=== PATIENT | female | born 1945 | race Caucasian/White ===

== ENCOUNTER → 2018-03-12 14:57 | Outpatient (CLI) | payer MEDICARE, OTHER, SELFPAY ==
--- NOTE | 2018-03-12 15:00 | DI.CT.S_ITS ---
PROCEDURE: CT ABDOMEN PELVIS W CON INDICATIONS: LLQ, lower abdomindal pain TECHNIQUE: After the administration of oral and intravenous contrast, 5 mm thick sections acquired from the diaphragms to the symphysis. 5 mm thick coronal and sagittal reformats were performed. For radiation dose reduction, the following was used: automated exposure control, adjustment of mA and/or kV according to patient size. COMPARISON: None. FINDINGS: Image quality: Excellent. ABDOMEN: Lung bases: There is mild atelectasis. Heart size is at the upper limits of normal. A small hilar hernia is present. Solid organs: There is mild focal fatty infiltration in the anterior left hepatic lobe. Gallbladder appears within normal limits without calcified gallstones. Biliary system is non-dilated. Pancreas enhances normally. Spleen is normal in size and enhancement. No adrenal nodules. Kidneys demonstrate no hydronephrosis. Peritoneum and bowel: Stomach and small bowel loops are normal in caliber and wall thickness. No pericecal inflammatory changes to suggest appendicitis. There is colonic diverticulosis with associated segmental wall thickening and extensive inflammatory fat stranding and pericolonic fluid in the sigmoid colon consistent with acute diverticulitis. There is an associated pericolonic loculated fluid collection containing gas consistent with a diverticular abscess. This measures approximately 3.9 x 2.5 x 2.2 cm. Inflammatory fat stranding extends to the adjacent loops of small bowel and the bladder dome without a discrete fistula identified at this time. Nodes and vessels: No retroperitoneal or mesenteric adenopathy. Aorta and inferior vena cava are normal in caliber. Miscellaneous: No ventral hernias. PELVIS: Genitourinary: Bladder wall thickness is normal. Miscellaneous: No inguinal hernias or adenopathy. Bones: No suspicious bony lesions. No vertebral body compression fractures. IMPRESSION: 1. Sigmoid diverticulitis with an associated diverticular abscess. Findings discussed with the on-call physician, Dr. York, on 03/12/18 at 5:25 PM. Dictated by: Fredy Trujillo M.D. on 03/12/2018 at 16:54 Approved by: Fredy Trujillo M.D. on 03/12/2018 at 17:26
[2018-03-12 15:14] LABS: Add Manual Diff / Slide Review NO; Basophils Percent Auto 0.5 % (0-2); Eosinophils Percent Auto 0.2 % (2-4); Hematocrit 39.7 % (36-46); Hemoglobin 13.7 g/dL (12.0-16.0); Lymphocytes Percent Auto 9.9 % (25-40); Mean Corpuscular HGB Conc 34.5 % (30-36); Mean Corpuscular Hemoglobin 30.6 PG (26-34); Mean Corpuscular Volume 88.7 fL (80-100); Monocytes Percent Auto 6.8 % (3-14); Neutrophils Absolute Auto 9800 /uL (3000-5900); Neutrophils Percent Auto 82.6 % (50-75); Platelet Count 335 X10^3/uL (150-400); Red Blood Cell Count 4.48 X10^6/uL (4.0-5.2); Red Cell Distribution Width 12.5 % (11.6-14.8); White Blood Cell Count 11.8 X10^3/uL (4.5-11.0)
[2018-03-12 15:31] LABS: Alanine Aminotransferase 30 IU/L (9-52); Albumin 4.7 g/dL (3.5-5.0); Albumin Globulin Ratio 1.4 (1.0-2.8); Alkaline Phosphatase 75 U/L (38-126); Aspartate Aminotransferase 24 IU/L (14-36); BUN Creatinine Ratio 21.3 (6-22); Bilirubin Total 1.7 mg/dL (0.2-1.3); Blood Urea Nitrogen 17 mg/dL (7-17); Calcium 9.9 mg/dL (8.4-10.2); Carbon Dioxide 31 mmol/L (22-32); Chloride 98 mmol/L (98-107); Estimated Glomerular Filt Rate > 60.0 mL/min (>60); Globulin 3.4 g/dL (1.7-4.1); Glucose 92 mg/dL (80-110); HEMOLYSIS < 15 (0-50); Sodium 143 mmol/L (137-145); Total Protein 8.1 g/dL (6.3-8.2)
== END ==
PROVIDERS: PCP Family Medicine; Visit Provider Registered Nurse
DX: K57.20 Diverticulitis of large intestine with perforation and abscess without bleeding (principal); R10.32 Left lower quadrant pain
CPT/HCPCS: 36415; 74177; 80053; 85025; Q9967

== ENCOUNTER 2018-03-12 18:41 | Inpatient (IN) | payer MEDICARE, OTHER, SELFPAY ==
[2018-03-12 18:58] VITALS: BP 146/79; PULSE 80; RESP 15; TEMP 38.1; O2SAT 97; BMI 26.4
--- NOTE | 2018-03-12 19:16 | ED.ABDPAIN ---
HPI - Abdominal Pain General Chief Complaint: Abdominal Pain Stated Complaint: STATES ABDOMINAL ABSCESS Time Seen by Provider: 03/12/18 18:55 Related Data Home Medications Medication Instructions Recorded Confirmed calcium carbonate-vitamin D3 500 mg PO 0800 #0 03/13/12 03/12/18 [Oyster Shell Calcium-Vit D3] aspirin 81 mg PO QDAY #0 04/09/17 03/12/18 coQ10 (ubiquinol) 100 mg PO #0 04/09/17 03/12/18 metoprolol tartrate 50 1 tab PO DAILY 03/06/18 03/12/18 mg-hydrochlorothiazide 25 mg tablet Previous Rx's Medication Instructions Recorded rosuvastatin [Crestor] 20 mg PO QDAY #90 tab 04/27/17 ciprofloxacin 500 mg tablet 500 mg PO Q12H 7 Days #14 tab 03/12/18 metronidazole 500 mg tablet 500 mg PO Q8H 7 Days #21 tab 03/12/18 Allergies Allergy/AdvReac Type Severity Reaction Status Date / Time morphine [MORPHINE] AdvReac Mild MADE ME Verified 03/12/18 18:58 SILVIANO [facility] Medical History Hyperlipidemia (Chronic) Hypertension (Chronic 2005) Retinal vascular abnormality (Chronic) Cataract (Resolved 2006) Chicken pox (Resolved 1949) Mumps (Resolved 1949) Ovarian cyst (Resolved 1997) Rubella (Resolved 1949) Surgical History Anesthesia (Resolved) History of cataract removal with insertion of prosthetic lens (Resolved) History of tonsillectomy (Resolved) History of total abdominal hysterectomy (Resolved 05/1998) S/P total abdominal hysterectomy and bilateral salpingo-oophorectomy (Resolved 05/1998) Status post appendectomy (Resolved) Status post arthroscopy (Resolved 2005) Status post arthroscopy (Resolved 2006) Status post unilateral salpingo-oophorectomy (Resolved 03/1977) Status post unilateral salpingo-oophorectomy (Resolved 05/1998) Family History Brother Age: 65 Osteoarthritis Arrhythmia Heart disease Secondary hypertension, unspecified IBS (irritable bowel syndrome) Arthritis Grandfather TB (tuberculosis) Grandmother Heart disease Mother Colon cancer Hyperlipidemia Hypertension CAD (coronary artery disease) Heart valve replaced Grandfather Stroke Grandmother Heart disease Sister Age: 71 IBS (irritable bowel syndrome) Father Rheumatoid arthritis Sister No problems noted. Sister No problems noted. Sister No problems noted. Social History Smoking Status: Never smoker Exam Initial Vital Signs Initial Vital Signs: Vital Signs Temperature 100.5 F H 03/12/18 18:58 Pulse Rate 80 03/12/18 18:58 Respiratory Rate 15 03/12/18 18:58 Blood Pressure 146/79 H 03/12/18 18:58 Pulse Oximetry 97 03/12/18 18:58 Course Orders Ordered: Piperacillin/Tazobactam/Dextrose (Zosyn) 3.375 gm in 50 mls @ 100 mls/hr IV NOW ONE Stop: 03/12/18 20:05 Metronidazole (Flagyl) 500 mg in 100 mls @ 100 mls/hr IV NOW ONE Stop: 03/12/18 20:35 Sodium Chloride (Normal Saline 0.9%) 1,000 mls @ 1,000 mls/hr IV BOLUS ONE Stop: 03/12/18 20:35 Consultations Consultation #1: Dr. Santillan consulted and reviewed images. She states this is not surgical, admit to medicine and will likely need a drain by radiology Time: 19:40 Consultation #2: call to Dr. Velarde Time: 19:40 Vital Signs - 8 hr 03/12/18 18:58 Temperature 100.5 F H Pulse Rate 80 Respiratory Rate 15 Blood Pressure 146/79 H Pulse Oximetry 97 MDM - Abdominal Pain Imaging Data CT scan - abdomen: Radiologist's impression: [place] [address] CT Scan Report Signed Patient: Corie Mills EMR#: [id number] : 4Acct:[id number] Age/Sex: 72 / FDate of Service: 03/12/18 Loc: CT Accession Number: [id number] Procedure: CT abdomen pelvis w con Ordering Provider: Kimberly Sullivan PROCEDURE: CT ABDOMEN PELVIS W CON INDICATIONS: LLQ, lower abdomindal pain TECHNIQUE: After the administration of oral and intravenous contrast, 5 mm thick sections acquired from the diaphragms to the symphysis. 5 mm thick coronal and sagittal reformats were performed. For radiation dose reduction, the following was used: automated exposure control, adjustment of mA and/or kV according to patient size. COMPARISON: None. FINDINGS: Image quality: Excellent. ABDOMEN: Lung bases: There is mild atelectasis. Heart size is at the upper limits of normal. A small hilar hernia is present. Solid organs: There is mild focal fatty infiltration in the anterior left hepatic lobe. Gallbladder appears within normal limits without calcified gallstones. Biliary system is non-dilated. Pancreas enhances normally. Spleen is normal in size and enhancement. No adrenal nodules. Kidneys demonstrate no hydronephrosis. Peritoneum and bowel: Stomach and small bowel loops are normal in caliber and wall thickness. No pericecal inflammatory changes to suggest appendicitis. There is colonic diverticulosis with associated segmental wall thickening and extensive inflammatory fat stranding and pericolonic fluid in the sigmoid colon consistent with acute diverticulitis. There is an associated pericolonic loculated fluid collection containing gas consistent with a diverticular abscess. This measures approximately 3.9 x 2.5 x 2.2 cm. Inflammatory fat stranding extends to the adjacent loops of small bowel and the bladder dome without a discrete fistula identified at this time. Nodes and vessels: No retroperitoneal or mesenteric adenopathy. Aorta and inferior vena cava are normal in caliber. Miscellaneous: No ventral hernias. PELVIS: Genitourinary: Bladder wall thickness is normal. Miscellaneous: No inguinal hernias or adenopathy. Bones: No suspicious bony lesions. No vertebral body compression fractures. IMPRESSION: 1. Sigmoid diverticulitis with an associated diverticular abscess. Findings discussed with the on-call physician, Dr. York, on 03/12/18 at 5:25 PM. Dictated by: Fredy Trujillo M.D. on 03/12/2018 at 16:54 Approved by: Fredy Trujillo M.D. on 03/12/2018 at 17:26 Discharge Plan Departure Patient Disposition: Admitted As Inpatient Clinical Impression: Diverticulitis of intestine with abscess
[2018-03-12] MEDS: SODIUM CHLORIDE 0.9% 1,000 ML 1000 ML IV (19:55)
[2018-03-12] MEDS: PIPERACILLIN-TAZO 3.375 GM/50 ML FROZ.PIGGY IV (19:55)
[2018-03-12] MEDS: HYDROMORPHONE 1 MG INJ 0.5 MG IV (20:15)
[2018-03-12 20:35] VITALS: BMI 26.4
[2018-03-12] MEDS: SODIUM CHLORIDE 0.9% 1,000 ML 125 ML IV (21:30)
[2018-03-12] MEDS: metroNIDAZOLE 500 MG/100 ML PIGGYBACK 100 MG IV (21:33)
[2018-03-12] MEDS: ONDANSETRON 4 MG/2 ML INJ IV (22:52)
[2018-03-12] MEDS: HYDROMORPHONE PCA 6 MG/30 ML PCA.VIAL IV (22:54)
--- NOTE | 2018-03-12 23:01 | PC.NURSE ---
arrived to floor, set up ENVIRONMENTAL JOURNALIST, but pt did not use this shift. VSS on RA, stable on feet, utilized call light appropriately. NPO, IV fluids and IV antibiotics.
[2018-03-12 23:50] VITALS: BP 107/52; PULSE 73; RESP 16; TEMP 37.7; O2SAT 95
[2018-03-13] VITALS (7 sets, daily range): BP systolic 98–145; BP diastolic 54–71; PULSE 64–80; RESP 16; TEMP 36.7–37.3; O2SAT 96–98
[2018-03-13] MEDS: PIPERACILLIN-TAZO 3.375 GM/50 ML FROZ.PIGGY IV ×4 (00:57→18:48)
[2018-03-13] MEDS: metroNIDAZOLE 500 MG/100 ML PIGGYBACK 100 MG IV ×4 (02:13→20:09)
[2018-03-13] MEDS: SODIUM CHLORIDE 0.9% 1,000 ML 125 ML IV (05:28)
[2018-03-13] MEDS: HYDROMORPHONE PCA 6 MG/30 ML PCA.VIAL IV ×2 (05:31→22:15)
--- NOTE | 2018-03-13 08:32 | PC.NURSE ---
Addendum entered by Eleonora lE R.N. 03/13/18 13:34: 0900-Dr Edgar into see Pt, will continue with supportive care at this time. NPO and LATHING SUPERVISOR in use, ABO therapy Cooperative with care. Original Note: Am shift Pt remains NPO without nausea and LATHING SUPERVISOR effective for pain relief at present. Discussed POC and await Dr Cox to address POC, w/ changes anticipated . Gait steady to BR, SBA.
--- NOTE | 2018-03-13 09:05 | P.HP_ITS ---
History of Present Illness Date Patient Seen: 03/13/18 Time Patient Seen: 08:59 Chief complaint: STATES ABDOMINAL ABSCESS Narrative: Patient is a 72 yo female who presesnted to clinic yesterday because of lower abdominal pain, cramping, and diarrhea. She was found to have diverticulitis with an abscess on CT scan and sent to the ED. She tells me that she started feeling a little cramping and discomfort on Sunday which progressed. She reports having pain in her bladder with both stooling and urination. She has had chills but not real fever. Her temperatures were in the 99's. She was hoping it would improve on a liquid diet and she'd be able to go on the trip she has scheduled for tomorrow to see her grandchildren. We had just seen her for her blood pressure follow up last week and she was doing well at that time. She tells me that she feels remarkable better this morning than she did yesterday. Still some discomfort in her lower abdomen if she moves but no pain like she had. Patient History Medical History Hyperlipidemia (Chronic) Hypertension (Chronic 2005) Retinal vascular abnormality (Chronic) Cataract (Resolved 2006) Chicken pox (Resolved 1949) Mumps (Resolved 1949) Ovarian cyst (Resolved 1997) Rubella (Resolved 1949) Surgical History Anesthesia (Resolved) History of cataract removal with insertion of prosthetic lens (Resolved) History of tonsillectomy (Resolved) History of total abdominal hysterectomy (Resolved 05/1998) Status post appendectomy (Resolved) Status post arthroscopy (Resolved 2005) Status post arthroscopy (Resolved 2006) Status post unilateral salpingo-oophorectomy (Resolved 03/1977) Family & Social History Social History: household members none Prior Living Arrangements House Safety & Behavioral: Feels Safe in Current Yes Environment Been Physically Hurt or No Threatened By a Person Suicidal Ideation Description None Suicide Plan Description No Plan Tobacco & Substance use: Smoking Status Never smoker alcohol intake current alcohol intake frequency holiday/special occasion Substance Use Type does not use Meds Home Medications Medication Instructions Recorded Confirmed Type calcium carbonate-vitamin D3 500 mg PO 0800 #0 03/13/12 03/12/18 History [Oyster Shell Calcium-Vit D3] aspirin 81 mg PO QDAY #0 04/09/17 03/12/18 History coQ10 (ubiquinol) 100 mg PO DAILY #0 04/09/17 03/12/18 History rosuvastatin [Crestor] 20 mg PO QDAY #90 tab 04/27/17 03/12/18 Rx metoprolol tartrate 50 1 tab PO DAILY 03/06/18 03/12/18 History mg-hydrochlorothiazide 25 mg tablet Allergies Allergy/AdvReac Type Severity Reaction Status Date / Time morphine [MORPHINE] AdvReac Mild MADE ME Verified 03/12/18 18:58 SILVIANO Review of Systems Review of Systems All systems reviewed & are unremarkable except as noted in HPI and below Exam Vital Signs (past 8 hours): - 03/13/18 04:48 03/13/18 08:22 Temperature 98.6 F 98.1 F Pulse Rate 64 70 Respiratory Rate 16 16 Blood Pressure 124/57 L 141/63 H Pulse Oximetry 96 96 Oxygen Delivery Method Room Air Const General: cooperative, healthy appearing, No comfortable and well developed HENNY Head: normal to inspection Ears: hearing grossly normal bilaterally and external ears normal Nose: external nose normal Face and sinus: normal facial exam and face symmetric Mouth: oral mucosae normal Eyes General: appearance normal, both eyes and all related structures Neck Neck: normal visual inspection Resp Effort & Inspection: normal respiratory effort and able to speak in complete sentences Auscultation: clear to auscultation bilaterally Cardio Palpation: normal PMI Rate: regular rate Rhythm: regular rhythm Heart Sounds: S1 normal and S2 normal Pulses: radial pulses present GI Inspection: normal to inspection Palpation: soft Auscultation: hyperactive bowel sounds and hypoactive bowel sounds Skin General: no rashes or lesions noted Neuro General: alert, awake and oriented x3 Extrem General: normal to inspection, no pedal edema and no calf tenderness Psych Appearance: grossly normal and well kempt Mental Status: mental status grossly normal Speech and Movement: speech and movement normal Mood: congruent mood Affect: normal affect Attitude: cooperative Thought Process: normal Thought Content: normal Judgment: judgment good Objective Imaging CT scan - abdomen: Radiologist's impression: IMPRESSION: 1. Sigmoid diverticulitis with an associated diverticular abscess. Findings discussed with the on-call physician, Dr. York, on 03/12/18 at 5:25 PM. Dictated by: Fredy Trujillo M.D. on 03/12/2018 at 16:54 Approved by: Fredy Trujillo M.D. on 03/12/2018 at 17:26 Assessment & Plan Plan: Assessment/Plan Narrative: 72 yo female with sigmoid diverticulitis and abscess improved with hydration and antibiotics. Consultation with surgery indicates that this is not surgical. Consultation with radiology indicates that the abscess is in a location which would not be reachable transcutaneously and it is loculated and likely not to drain. Diverticulitis with abscess: 1. Continue antibiotics. Treating for the normal GI pathogens. Anticipate a 10- 14 days course. Transition to oral when tolerating PO. 2. Continue with bowel rest for now. 3. Will discuss with surgery again. 4. Has PHYSICAL OPTICS TEACHER for pain 5. Will add protonix for prophylaxis Hypertension: 1. Will monitor blood pressures for now. Restart home meds if needed. DVT prophylaxis: lovenos CODE status: full code Disposition: Home when this infection has been adequately treated. Anticipate another 24-48 hours of care. Quality VTE Deep Vein Thrombosis/Pulmonary Embolism Present on Admission: No
[2018-03-13] MEDS: PANTOPRAZOLE 40 MG VIAL IV (13:27)
[2018-03-13] MEDS: ONDANSETRON 4 MG/2 ML INJ IV ×2 (14:55→22:42)
--- NOTE | 2018-03-13 15:10 | CM.DANOTE ---
Discharge Planning/Care Management DCP: assessment: case received, EMR reviewed. Met this morning 0800 with pt. Introduced self and role. 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 She admitted to care of [facility] physicians last night and was at time of this meeting waiting to see her PCP: Dr. Lopez. Payer: Medicare and [facility] Pt is functionally independent in the community. Lives alone, is . She says she has 4 adult children all out of state and they are on the phone with her and expressing their concerns. Pt does anticipate that she will be going home at d/c but has already cancelled her scheduled flight to [place] this week as she understands this will not be doable. P: follow prn as POC unfolds. Pt at this time is not a surgical candidate the placement of a drain to help manage her diverticular abscess in not considered feasible. CM Discharge Assessment Start: 03/13/18 15:08 Freq: Status: Active Protocol: Document 03/13/18 15:08 ITV (Rec: 03/13/18 15:10 ITV [id number]) Discharge Planning Assessment History Provided By Patient Medical Record Prior Living Arrangements House Household Members none Whiteboard Updated in Patient Room with Yes name and ext. # of Accounting Assistant Review Status In Process Next Review Type Continued Stay Review
[2018-03-13] MEDS: CALCIUM CARBONATE 500 MG TAB PO ×2 (18:48→23:48)
--- NOTE | 2018-03-13 22:54 | PC.NURSE ---
03/13 2254; pt alert and oriented with vss on RA, abdominal pain stated to be controlled by supervisor front. complained of nausea and reflux, MD notified and ordered TUMs prn with relief stated. PRN zofran for nausea.
[2018-03-14] MEDS: PIPERACILLIN-TAZO 3.375 GM/50 ML FROZ.PIGGY IV ×4 (01:16→18:13)
[2018-03-14] MEDS: metroNIDAZOLE 500 MG/100 ML PIGGYBACK 100 MG IV ×4 (02:22→19:54)
[2018-03-14 04:43] VITALS: BP 130/61; PULSE 68; RESP 16; TEMP 37.1; O2SAT 97
[2018-03-14] MEDS: SODIUM CHLORIDE 0.9% 1,000 ML 125 ML IV (04:43)
--- NOTE | 2018-03-14 04:56 | PC.NURSE ---
pt passed some gas this morning. denied pain. vss. call light in reach.
[2018-03-14] MEDS: HYDROMORPHONE PCA 6 MG/30 ML PCA.VIAL IV (06:27)
[2018-03-14 07:18] LABS: Add Manual Diff / Slide Review NO; Basophils Percent Auto 0.3 % (0-2); Eosinophils Percent Auto 0.4 % (2-4); Hematocrit 34.3 % (36-46); Hemoglobin 11.7 g/dL (12.0-16.0); Lymphocytes Percent Auto 10.7 % (25-40); Mean Corpuscular HGB Conc 34.1 % (30-36); Mean Corpuscular Hemoglobin 30.4 PG (26-34); Mean Corpuscular Volume 89.1 fL (80-100); Monocytes Percent Auto 6.8 % (3-14); Neutrophils Absolute Auto 7600 /uL (3000-5900); Neutrophils Percent Auto 81.8 % (50-75); Platelet Count 278 X10^3/uL (150-400); Red Blood Cell Count 3.85 X10^6/uL (4.0-5.2); Red Cell Distribution Width 12.5 % (11.6-14.8); White Blood Cell Count 9.3 X10^3/uL (4.5-11.0)
[2018-03-14 07:45] VITALS: BP 123/62; PULSE 81; RESP 16; TEMP 36.6; O2SAT 96
[2018-03-14 07:54] LABS: BUN Creatinine Ratio 23.8 (6-22); Blood Urea Nitrogen 19 mg/dL (7-17); Calcium 8.7 mg/dL (8.4-10.2); Carbon Dioxide 27 mmol/L (22-32); Chloride 105 mmol/L (98-107); Estimated Glomerular Filt Rate > 60.0 mL/min (>60); Glucose 74 mg/dL (80-110); HEMOLYSIS < 15 (0-50); Potassium 3.9 mmol/L (3.4-5.1); Sodium 144 mmol/L (137-145)
[2018-03-14] MEDS: PANTOPRAZOLE 40 MG VIAL IV (08:09)
--- NOTE | 2018-03-14 08:19 | PM.PN.1 ---
Subjective Date Patient Seen: 03/14/18 Time Patient Seen: 08:20 Interval history: Patient is sitting up on the side of the bed this morning with a catch in her left knee. She has been sedentary for the past few days and it seems to be locking up. 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 Usually walking around relieves this. It isn't swollen or red. She is feeling much better today. Small stool passed this morning. Able to move around without abdominal pain. No EARLY EDUCATION TEACHER use overnight. Tums was helpful. She would really like to eat. Exam Vital Signs (past 8 hours): - 03/14/18 04:43 Temperature 98.7 F Pulse Rate 68 Respiratory Rate 16 Blood Pressure 130/61 Pulse Oximetry 97 Oxygen Delivery Method Room Air Const General: cooperative, healthy appearing, comfortable, well developed and well groomed Nutritional Appearance: average body habitus and well nourished Orientation: alert Resp Effort & Inspection: normal respiratory effort and able to speak in complete sentences Auscultation: clear to auscultation bilaterally, no rales, no rhonchi and no wheezes Cardio Palpation: normal PMI Rate: regular rate Rhythm: regular rhythm Heart Sounds: S1 normal and S2 normal Pulses: radial pulses present bilaterally GI Inspection: normal to inspection and non-distended Palpation: soft and guarding (LLQ) Auscultation: normal bowel sounds Extrem General: normal to inspection, no pedal edema and no calf tenderness Objective Labs Result Diagrams: 03/14/18 06:40 03/14/18 06:40 Labs: Laboratory Results - last 24 hr 03/14/18 03/14/18 06:40 06:40 WBC 9.3 RBC 3.85 L Hgb 11.7 L Hct 34.3 L MCV 89.1 MCH 30.4 MCHC 34.1 RDW 12.5 Plt Count 278 Neut % (Auto) 81.8 H Lymph % (Auto) 10.7 L [place] % (Auto) 6.8 Eos % (Auto) 0.4 L Baso % (Auto) 0.3 Neut # (Auto) 7600 H Sodium 144 Potassium 3.9 Chloride 105 Carbon Dioxide 27 BUN 19 H Creatinine 0.80 Estimated GFR > 60.0 BUN/Creatinine Ratio 23.8 H Glucose 74 L Calcium 8.7 Assessment & Plan Plan: Assessment/Plan Narrative: 72 yo female with sigmoid diverticulitis and abscess continues to improve with hydration and antibiotics. Consultation with surgery indicates that this is not surgical. Consultation with radiology indicates that the abscess is in a location which would not be reachable transcutaneously and it is loculated and likely not to drain. Surgery recommends medical treatment and repeat CT in 3 days. Diverticulitis with abscess: 1. Continue antibiotics. Treating for the normal GI pathogens, gram negatives and anaerobes. Anticipate a 10-14 days course. Transition to oral when tolerating PO. 2. Start clears 3. Has EARLY EDUCATION TEACHER for pain 4. protonix for prophylaxis 5. CT scan tomorrow Hypertension: 1. Will monitor blood pressures for now. Restart home meds if needed. Anemia: more than anticipated for dilutional. Possible losses to abscess. 1. Monitor DVT prophylaxis: Patient is ambulatory today. Still possibility of surgery so will not do lovenox. CODE status: full code Disposition: Home when this infection has been adequately treated. Anticipate another 24-48 hours of care. Quality VTE Deep Vein Thrombosis/Pulmonary Embolism Present on Admission: No
[2018-03-14 12:21] VITALS: BP 152/81; PULSE 70; RESP 16; TEMP 36.7; O2SAT 99
--- NOTE | 2018-03-14 13:08 | PC.NURSE ---
Am shift Pt has had c/o L posterior knee pain this shift. Feels tight, ROM decreased. Warmth has not helped loosen, Pt attempting ambulation, no relief. Call into Dr Lopez, who will see Pt again this afternoon. PT orders placed. IVF continue and clear liq diet rebecca well.
--- NOTE | 2018-03-14 14:32 | PT.IPTN ---
Current Diagnoses Diverticulitis of large intestine with perforation and abscess without bleeding (03/12/18) Physical Therapy Treatment Note M2 PT-IP Current Condition Start: 03/14/18 14:58 Freq: NEEDED Status: Active Protocol: Document 03/14/18 14:32 DCW (Rec: 03/14/18 15:08 [facility] [id number]) Physical Therapy Current Condition Current Condition Evaluation Date 03/14/18 Treatment Diagnosis left knee pain Onset Date 03/14/18 Weight Bearing Status Weight Bearing Status Full Weight Bearing M3 PT-IP Subjective Start: 03/14/18 14:58 Freq: NEEDED Status: Active Protocol: Document 03/14/18 14:32 DCW (Rec: 03/14/18 15:08 [facility] [id number]) Subjective Physical Therapy Visit Type Type Initial Evaluation Visit Start Time 14:32 Visit Stop Time 14:50 Total Visit Minutes 18 Notes Pt was admitted two days ago with an abdominal abscess and diverticulitis. During that time, pt has been ambulatory and safe independently in her room and the hallway without an assistive device. Today when up with her physician, pt complained of knee pain, and a PT consult was ordered. At the time the therapist arrived to patient's room, there were no further complaints of pain , with the patient noting she must have worked it out. Pt notes she is very active, but was interested in learning a few easy quad strengthening exercises, as she does have a history of bilateral meniscectomies. Number of CHILDCARE DIRECTOR Visits 0 Therapy Pain Assessment Pain When Pain Assessed During Exercise Location Abdomen Intensity 0 Scale Used Numeric (1 - 10) M7 PT-IP Assessment and Plan Start: 03/14/18 14:58 Freq: NEEDED Status: Active Protocol: Document 03/14/18 14:32 DCW (Rec: 03/14/18 15:08 [facility] [id number]) PT Summary Assessment and Plan Summary Impairments Strength Assessment Summary Pt currently presenting with no complaints, and no indications for further inpatient therapy. Therapist reviewed LAQ, SLR, and SLR /c ER for quad exercise for the patient, but at this time, she is completely independent with ambulation and line management. Pt's previous knee pain has also resolved. It is unclear at this time if the patient will need to undergo surgical intervention for her abdominal abscess, and if she does, a new referral for skilled therapy may be indicated post-op. Frequency of Treatment Frequency Of Treatment Discharge Discharge Recommendations Other Discharge Recommendations Home pending surgical intervention for abdominal abscess
[2018-03-14] MEDS: LACTATED RINGERS 1,000 ML 125 ML IV (15:01)
[2018-03-14 16:11] VITALS: BP 140/78; PULSE 69; RESP 16; TEMP 36.8; O2SAT 99
--- NOTE | 2018-03-14 17:54 | PC.NURSE ---
Patricia shift note: Patient awake, alert, ambulating in hallway independently. Tolerating clear liquid diet, no nausea or vomiting. Dr. Lopez at bedside, Ct scan ordered for 03/15 afternoon. IVF discontinued. Continue on IV abx, VSS and afebrile. Calls appropriately for staff assist.
[2018-03-14 20:40] VITALS: BP 149/72; PULSE 62; RESP 16; TEMP 36.8; O2SAT 99
[2018-03-14] MEDS: METOPROLOL 25 MG TABLET PO (20:59)
[2018-03-15 00:22] VITALS: BP 145/68; PULSE 56; RESP 18; TEMP 36.9; O2SAT 96
[2018-03-15] MEDS: PIPERACILLIN-TAZO 3.375 GM/50 ML FROZ.PIGGY IV ×4 (00:53→19:15)
[2018-03-15] MEDS: metroNIDAZOLE 500 MG/100 ML PIGGYBACK 100 MG IV ×4 (01:49→20:24)
--- NOTE | 2018-03-15 05:16 | PC.NURSE ---
pt denied pain. tolerating clear liquid diet. pt is passing gas and had 2 bowel movements last night. call light in reach.
[2018-03-15 05:40] VITALS: BP 121/65; PULSE 55; RESP 15; TEMP 36.7; O2SAT 97
[2018-03-15 07:15] VITALS: BP 134/78; PULSE 75; RESP 16; TEMP 36.9; O2SAT 99
[2018-03-15 07:33] LABS: Add Manual Diff / Slide Review NO; Basophils Percent Auto 0.7 % (0-2); Eosinophils Percent Auto 1.8 % (2-4); Hemoglobin 12.1 g/dL (12.0-16.0); Lymphocytes Percent Auto 25.9 % (25-40); Mean Corpuscular HGB Conc 34.5 % (30-36); Mean Corpuscular Hemoglobin 30.3 PG (26-34); Mean Corpuscular Volume 87.6 fL (80-100); Monocytes Percent Auto 10.6 % (3-14); Neutrophils Absolute Auto 3800 /uL (3000-5900); Platelet Count 314 X10^3/uL (150-400); Red Blood Cell Count 3.99 X10^6/uL (4.0-5.2); Red Cell Distribution Width 12.4 % (11.6-14.8); White Blood Cell Count 6.2 X10^3/uL (4.5-11.0)
[2018-03-15 07:45] LABS: Blood Urea Nitrogen 12 mg/dL (7-17); Calcium 8.9 mg/dL (8.4-10.2); Carbon Dioxide 31 mmol/L (22-32); Chloride 104 mmol/L (98-107); Estimated Glomerular Filt Rate > 60.0 mL/min (>60); Glucose 95 mg/dL (80-110); HEMOLYSIS < 15 (0-50); Potassium 3.4 mmol/L (3.4-5.1); Sodium 145 mmol/L (137-145)
--- NOTE | 2018-03-15 08:17 | P.PN_ITS ---
Subjective Date Patient Seen: 03/15/18 Time Patient Seen: 08:14 Interval history: Patient is sitting up in chair this morning, tearful. Was incontinent of very loose stool and this was upsetting. She has had 3-4 loose now watery stools overnight. No cramping with them. She has tolerated her clear liquid diet. Daughter came up from [place] yesterday evening and was visiting. Patient spends wetzel there. Pressure from family to return to [place] but patient prefers to be here. We talk about her metoprolol dose and cardiology visit and she reminds me that she had been complaining about fatigue since starting this medication. She does have occassional PVC or PAC. Exam Vital Signs (past 8 hours): - 03/15/18 00:22 03/15/18 05:40 Temperature 98.5 F 98.0 F Pulse Rate 56 L 55 L Respiratory Rate 18 15 Blood Pressure 145/68 H 121/65 Pulse Oximetry 96 97 Oxygen Delivery Method Room Air Const General: cooperative and comfortable Nutritional Appearance: average body habitus and well nourished Orientation: alert, awake and oriented x3 Resp Effort & Inspection: normal respiratory effort Auscultation: clear to auscultation bilaterally Cardio Palpation: normal PMI Rate: regular rate Rhythm: regular rhythm Heart Sounds: S1 normal and S2 normal GI Inspection: normal to inspection Palpation: soft, guarding and tender (LLQ) Extrem General: normal to inspection, full ROM, No no clubbing, cyanosis or edema and no calf tenderness Objective Labs Result Diagrams: 03/15/18 06:50 03/15/18 06:50 Labs: Laboratory Results - last 24 hr 03/15/18 03/15/18 06:50 06:50 WBC 6.2 RBC 3.99 L Hgb 12.1 Hct 35.0 L MCV 87.6 MCH 30.3 MCHC 34.5 RDW 12.4 Plt Count 314 Neut % (Auto) 61.0 D Lymph % (Auto) 25.9 Redwood % (Auto) 10.6 Eos % (Auto) 1.8 L Baso % (Auto) 0.7 Neut # (Auto) 3800 Sodium 145 Potassium 3.4 Chloride 104 Carbon Dioxide 31 BUN 12 Creatinine 0.80 Estimated GFR > 60.0 BUN/Creatinine Ratio 15.0 Glucose 95 Calcium 8.9 Assessment & Plan Plan: Assessment/Plan Narrative: 72 yo female with sigmoid diverticulitis and abscess continues to improve with hydration and antibiotics. Consultation with surgery indicates that this is not surgical. Consultation with radiology indicates that the abscess is in a location which would not be reachable transcutaneously and it is loculated and likely not to drain. Surgery recommends medical treatment and repeat CT in 3 days which is today. Diverticulitis with abscess: 1. Continue antibiotics. Treating for the normal GI pathogens, gram negatives and anaerobes. Anticipate a 10-14 days course, today is day #4. Transition to oral when tolerating PO, possibly today depedent on CT results. 2. Tolerating clears consider advancing diet after scan 3. Pain is not requiring analgesia. 4. protonix for prophylaxis 5. CT scan today Diarrhea: likely antibiotic associated. 1. Will check for c. diff if she develops symptoms with the diarrhea. 2. Start probiotic. Hypertension: 1. Restarted metoprolol last night and heart rates dropped to the 50's on 25 mg. Patient also complaining of fatigue. Will decrease dose to 12.5 mg. Consider adding hctz back once she is tolerating a normal diet if pressures require. Anemia: more than anticipated for dilutional yesterday but improved today. 1. Monitor DVT prophylaxis: Patient is ambulatory today and is walking the halls. CODE status: full code Disposition: Home when this infection has been adequately treated. Anticipate another 24 hours of care if improvement continues. Quality VTE Deep Vein Thrombosis/Pulmonary Embolism Present on Admission: No
[2018-03-15] MEDS: ACIDOPHILUS/L.BULG/BIF.B/S.THERMOP TABLET 1 EACH PO ×3 (09:41→19:15)
[2018-03-15] MEDS: METOPROLOL 25 MG TABLET 12.5 MG PO (09:41)
--- NOTE | 2018-03-15 11:45 | PC.NURSE ---
AM NOTE - alert, sitting chair, rebecca clear liq, reports some earlier liq stool w/some incontinence, discussed bowel patters, states no abd pain, bt are hyperactive, ra 98%, hr reg 64.
--- NOTE | 2018-03-15 12:09 | DI.CT.S_ITS ---
PROCEDURE: CT ABDOMEN PELVIS W CON INDICATIONS: diverticulitis with abscess TECHNIQUE: After the administration of oral and intravenous contrast, 5 mm thick sections acquired from the diaphragms to the symphysis. 5 mm thick coronal and sagittal reformats were performed. For radiation dose reduction, the following was used: automated exposure control, adjustment of mA and/or kV according to patient size. COMPARISON: [facility], CT, CT ABDOMEN PELVIS W CON, 03/12/2018, 16:33. FINDINGS: Image quality: Excellent. ABDOMEN: Lung bases: Lung bases are clear. Heart size is normal. Solid organs: Liver is normal in size and enhancement. Focal fatty infiltration noted in the liver adjacent to the falciform ligament. Gallbladder is within normal limits. Biliary system is non-dilated. Pancreas enhances normally. Spleen is normal in size and enhancement. No adrenal nodules. Kidneys are normal in size and enhancement, without hydronephrosis. Peritoneum and bowel: Stomach, small bowel, and colon loops are normal in caliber. Sigmoid colon segmental wall thickening with adjacent inflammatory stranding has diminished in the interval since prior exam obtained 03/12/2018. Small sigmoid colon peridiverticular abscess is decreased in size measuring 0.6 x 1.1 x 0.7 cm in the current study. No free fluid or air. Nodes and vessels: No retroperitoneal or mesenteric adenopathy. Aorta and inferior vena cava are normal in caliber. Scattered atherosclerotic calcifications involving the abdominal and pelvic vasculature. Miscellaneous: No ventral hernias. PELVIS: Genitourinary: Bladder wall thickness is normal. Miscellaneous: No inguinal hernias or adenopathy. Bones: No suspicious bony lesions. No vertebral body compression fractures. Spine degenerative disc disease and facet arthropathy. Convex-right upper lumbar spine scoliosis is stable. IMPRESSION: 1. Sigmoid colon diverticulitis. Severity of the diverticulitis is diminished compared to 11/09/17. 2. Sigmoid colon peridiverticular abscess decreased in size measuring 0.6 x 1.1 x 0.7 cm in the current study (3.9 x 2.5 x 2.5 cm previously). Dictated by: Natacha Ayon MD, PhD on 03/15/2018 at 12:58 Approved by: Natacha Ayon MD, PhD on 03/15/2018 at 13:21
[2018-03-15] MEDS: PANTOPRAZOLE 40 MG VIAL IV (12:49)
[2018-03-15 13:40] VITALS: BP 147/82; PULSE 63; RESP 16; TEMP 36.6; O2SAT 100
[2018-03-15 15:33] VITALS: BP 152/79; PULSE 56; RESP 16; TEMP 36.9; O2SAT 97
[2018-03-15 20:15] VITALS: BP 139/71; PULSE 62; RESP 16; TEMP 36.9; O2SAT 99
[2018-03-15] MEDS: METOPROLOL 12.5 MG TABLET PO (20:25)
[2018-03-16] MEDS: diphenhydrAMINE 25 MG TABLET PO (00:05)
[2018-03-16 00:14] VITALS: BP 152/72; PULSE 60; RESP 18; TEMP 36.8; O2SAT 98
[2018-03-16] MEDS: PIPERACILLIN-TAZO 3.375 GM/50 ML FROZ.PIGGY IV ×3 (01:04→12:22)
[2018-03-16] MEDS: metroNIDAZOLE 500 MG/100 ML PIGGYBACK 100 MG IV ×3 (02:12→13:27)
[2018-03-16 05:04] VITALS: BP 134/72; PULSE 58; RESP 16; TEMP 37; O2SAT 98
[2018-03-16 07:40] VITALS: BP 126/71; PULSE 69; RESP 18; TEMP 36.6; O2SAT 97
[2018-03-16] MEDS: ACIDOPHILUS/L.BULG/BIF.B/S.THERMOP TABLET 1 EACH PO ×2 (07:50→12:05)
[2018-03-16] MEDS: METOPROLOL 12.5 MG TABLET PO (07:50)
[2018-03-16] MEDS: PANTOPRAZOLE 40 MG VIAL IV (09:27)
--- NOTE | 2018-03-16 10:36 | PM.DS.1 ---
History of Present Illness Date Patient Seen: 03/16/18 Time Patient Seen: 10:00 Chief complaint: STATES ABDOMINAL ABSCESS Narrative: Patient is a 72 yo female who presesnted to clinic yesterday because of lower abdominal pain, cramping, and diarrhea. She was found to have diverticulitis with an abscess on CT scan and sent to the ED. She tells me that she started feeling a little cramping and discomfort on Sunday which progressed. She reports having pain in her bladder with both stooling and urination. She has had chills but not real fever. Her temperatures were in the 99's. She was hoping it would improve on a liquid diet and she'd be able to go on the trip she has scheduled for tomorrow to see her grandchildren. We had just seen her for her blood pressure follow up last week and she was doing well at that time. She tells me that she feels remarkable better this morning than she did yesterday. Still some discomfort in her lower abdomen if she moves but no pain like she had. Discharge Providers Date of admission: 03/12/18 20:24 Primary care physician: Radha Lopez DO Consults: 03/12/18 20:31 Consult to General Surgery Routine Comment: Consulting Provider: Corie Santillan Reason for consultation: Diverticular Abscess Has provider been notified: Yes 03/14/18 13:09 Consult to Physical Therapy Evaluate & Treat Comment: left knee pain Physician Instructions: Evaluate and Treat Discharge provider: Trinh Velarde MD Summary Discharge Diagnosis: Diverticulitis Diverticular abscess Hypertension Hospital Course: The patient presented with abdominal pain, found in the outpatient setting to have a diverticular abscess. The patient was started on IV Flagyl and Zosyn. She was placed NPO for bowel rest. The patient's pain significantly improved. Her diet was then gradually advanced. At the time of discharge, she was eating soft foods without difficulty. Repeat CT scan the day prior to discharge showed significant shrinking of the abscess. The patient will complete her antibiotics at home with p.o. Flagyl and ciprofloxacin. She was previously prescribed these in clinic. She will continue to slowly advance her diet. Discussed low residue/low-fiber diet. Status at Discharge Functional status at discharge: independent ambulation Overall status at discharge: patient is progressing back to baseline Time Spent with Patient Greater than 30 minutes Exam Vital Signs (past 8 hours): - 03/16/18 05:04 03/16/18 07:40 Temperature 98.6 F 97.9 F Pulse Rate 58 L 69 Respiratory Rate 16 18 Blood Pressure 134/72 126/71 Pulse Oximetry 98 97 Oxygen Delivery Method Room Air Oxygen Flow Rate 0 Narrative Exam Narrative: General: No acute distress, sitting comfortably in bed, pleasantly conversant CV: Regular rate and rhythm, no murmurs Respiratory: Clear to auscultation bilaterally, no wheezes or crackles Abdomen: Soft, nondistended, no masses, very slightly tender to palpation in the left lower quadrant without rebound, guarding, or rigidity, normoactive bowel sounds Extremities: No edema Objective Imaging CT scan - abdomen: Radiologist's impression: 1. Sigmoid colon diverticulitis. Severity of the diverticulitis is diminished compared to 11/09/17. 2. Sigmoid colon peridiverticular abscess decreased in size measuring 0.6 x 1.1 x 0.7 cm in the current study (3.9 x 2.5 x 2.5 cm previously). Labs Result Diagrams: 03/15/18 06:50 03/15/18 06:50 Discharge Plan Discharge Plan Patient Disposition: Home Discharge comment: Continue Ciprofloxacin and Flagyl as prescribed in clinic until completed Discharge Med Rec/Prescriptions Prescriptions: Continue calcium carbonate-vitamin D3 [Oyster Shell Calcium-Vit D3] 1,250 MG/200 IU tablet 500 mg PO 0800 Qty: 0 RF: 0 aspirin 81 MG tablet,delayed release (DR/EC) 81 mg PO QDAY Qty: 0 RF: 0 coQ10 (ubiquinol) 100 MG capsule 100 mg PO DAILY Qty: 0 RF: 0 rosuvastatin [Crestor] 20 MG tablet 20 mg PO QDAY Qty: 90 RF: 4 metoprolol ta-hydrochlorothiaz 50-25 mg tablet 1 tab PO DAILY RF: 0 Follow up/Referrals: Radha Lopez DO [Primary Care Provider] - 1 Week Provider Discharge Instructions Diet: Diet as Tolerated Visit Report/Discharge Packet Instructions: Low-Fiber/Low-Residue Diet, DI for Diverticulitis Discharge Data Primary Care Provider: Radha Lopez Attending Provider: Trinh Velarde Admit Date/Time: 03/12/18 20:24 Quality VTE Deep Vein Thrombosis/Pulmonary Embolism Present on Admission: No
--- NOTE | 2018-03-16 11:01 | PC.NURSE ---
Addendum entered by Althea Hurst R.N. 03/16/18 15:19: DC - reviewed dc instructions with pt and her daughter, no new scripts, belongings gathered including cell phone, tablet and consumer education specialist, clothing and bag, heplock dc'd, escorted via [place] by feed elevator worker to family car. Original Note: Addendum entered by Althea Hurst R.N. 03/16/18 15:19: Original Note: Addendum entered by Althea Hurst R.N. 03/16/18 13:32: DC - prior to dc, given handouts for diverticulitis and a low residue diet. Completed doses iv abx. Original Note: AM NOTE - alert, starting full liq this am, started with some pudding last toño, denies nausea or abd pain, hyper bt, did have some liq stool earlier am, p60, ra 99%.
--- NOTE | 2018-03-16 12:40 | CM.DPC ---
Discharge orders received for patient. Met with patient and her daughter who is here from [place]. The plan is for patient to d/c home to [place]. Neither of them identify any barrier to d/c. Plan: D/c home with daughter today.
== END 2018-03-16 15:05 | disposition home or self-care (01) | DRG 392 ==
LOC: ED 19:38 → AC 20:25
PROVIDERS: Admitting Provider Family Medicine; Emergency Provider Emergency Medicine; PCP Family Medicine; Visit Provider Family Medicine
DX: K57.20 Diverticulitis of large intestine with perforation and abscess without bleeding (principal); K52.1 Toxic gastroenteritis and colitis; D64.9 Anemia, unspecified; T36.0X5A Adverse effect of penicillins, initial encounter; I10 Essential (primary) hypertension; E78.5 Hyperlipidemia, unspecified
CPT/HCPCS: 36415; 74177; 80048; 80053; 85025; 96365; 96375; 97161; 99222; 99232; 99238; 99282; 99284; C9113; J1170; J2405; J2543; Q9967

== ENCOUNTER → 2018-04-11 10:22 | Outpatient (CLI) | payer MEDICARE, OTHER, SELFPAY ==
[2018-03-12 20:35] VITALS: BMI 26.4
--- NOTE | 2018-04-11 | DI.MG.S_ITS ---
BILATERAL DIGITAL SCREENING MAMMOGRAM 3D/2D WITH CAD: 04/11/2018 CLINICAL: Routine screening. Comparison is made to exams dated: 04/10/2017 mammogram, 04/07/2016 mammogram, and 04/06/2015 mammogram - [facility]. There are scattered fibroglandular elements in both breasts. Current study was also evaluated with a Computer Aided Detection (CAD) system. No significant masses, calcifications, or other findings are seen in either breast. There has been no significant interval change. IMPRESSION: NEGATIVE There is no mammographic evidence of malignancy. A 1 year screening mammogram is recommended. This exam was interpreted at Station ID: [id number]. NOTE: For mammograms, a report in lay terms will be sent to the patient. Approximately 15% of breast malignancies will not be visualized mammographically. In the management of a palpable breast mass, a negative mammogram must not discourage biopsy of a clinically suspicious lesion. Electronically Signed By: Mehdi tamez/angie:04/14/2018 01:51:57 letter sent: Normal Exam ACR BI-RADS Category 1: Negative [id number]
== END ==
PROVIDERS: PCP Family Medicine; Visit Provider Family Medicine
DX: Z12.31 Encounter for screening mammogram for malignant neoplasm of breast (principal)
CPT/HCPCS: 77063; 77067

== ENCOUNTER → 2018-10-07 17:38 | Outpatient (CLI) | payer MEDICARE, OTHER, SELFPAY ==
--- NOTE | 2018-10-07 17:41 | DI.RAD.S_ITS ---
PROCEDURE: XR SHOULDER RT MIN 2V INDICATIONS: Right shoulder pain TECHNIQUE: 3 views of the shoulder were acquired. COMPARISON: None. FINDINGS: Bones: No fractures or dislocations. No suspicious bony lesions. Visualized ribs appear intact. Mild degenerative changes of the right acromioclavicular and glenohumeral joints. Soft tissues: No suspicious soft tissue calcifications. IMPRESSION: Mild degenerative changes of the right acromioclavicular and glenohumeral joints. Consider MRI for further evaluation if there is continued clinical concern. Dictated by: Mehdi Carter M.D. on 10/08/2018 at 9:45 Approved by: Mehdi Carter M.D. on 10/08/2018 at 9:50
== END ==
PROVIDERS: PCP Family Medicine; Visit Provider Nurse Practitioner
DX: M25.511 Pain in right shoulder (principal); M19.011 Primary osteoarthritis, right shoulder
CPT/HCPCS: 73030

== ENCOUNTER 2018-10-12 14:32 | Emergency (ER) | payer MEDICARE, OTHER, SELFPAY ==
[2018-10-12 14:47] VITALS: BP 181/75; PULSE 99; RESP 15; TEMP 36.4; O2SAT 99
--- NOTE | 2018-10-12 14:56 | DI.CT.S_ITS ---
PROCEDURE: CT HEAD/BRAIN WO CON INDICATIONS: fall onto face on asa no loc TECHNIQUE: Noncontrast 4.5 mm thick angled axial sections acquired from the foramen magnum to the vertex, with coronal and sagittal reformats. For radiation dose reduction, the following was used: automated exposure control, adjustment of mA and/or kV according to patient size. COMPARISON: None. FINDINGS: Image quality: Excellent. CSF spaces: Basal cisterns are patent. No extra-axial fluid collections. The ventricles are symmetric in size and shape. There is mild cerebral volume loss, with resultant ventricular and sulcal prominence. Brain: No intracranial hemorrhage, mass, or mass effect. There are subcortical, periventricular and deep white matter hypodensities consistent with mild chronic small vessel ischemic changes. There is intracranial internal carotid artery atherosclerosis. Skull and face: There is right supraorbital soft tissue swelling. Calvarium and visualized facial bones appear intact, without suspicious lesions. Sinuses: Visualized sinuses and mastoids are clear. IMPRESSION: 1. No acute intracranial abnormality. 2. Right supraorbital soft tissue swelling without associated fracture identified. Dictated by: Fredy Trujillo M.D. on 10/12/2018 at 15:31 Approved by: Fredy Trujillo M.D. on 10/12/2018 at 15:32
--- NOTE | 2018-10-12 14:56 | DI.CT.S_ITS ---
PROCEDURE: CT CERVICAL SPINE WO CON INDICATIONS: fall flat on face TECHNIQUE: Noncontrast 3 mm thick sections acquired from the skull base to the T4 level. Sagittal and coronal reformats were then constructed. For radiation dose reduction, the following was used: automated exposure control, adjustment of mA and/or kV according to patient size. COMPARISON: None. FINDINGS: Image quality: Excellent. Bones: No fractures or dislocations. There is minimal anterolisthesis at C7-T1. Visualized superior ribs are intact. Multilevel disc space narrowings present including moderate narrowing in the lower cervical spine with mild uncovertebral joint arthropathy. [id number] facet arthropathy also demonstrated throughout the cervical spine. Soft tissues: Prevertebral soft tissues are normal in thickness. No paravertebral hematomas. No apical pneumothoraces. IMPRESSION: 1. No fracture or subluxation. 2. Multilevel degenerative changes throughout the cervical spine as described. Minimal anterolisthesis at C7-T1 likely degenerative in etiology. Dictated by: Fredy Trujillo M.D. on 10/12/2018 at 15:32 Approved by: Fredy Trujillo M.D. on 10/12/2018 at 15:35
--- NOTE | 2018-10-12 15:29 | PC.NURSE ---
Laceration to bridge of nose, left forehead, and left eyelid, each about 1 cm in length. Bleeding controlled.
--- NOTE | 2018-10-12 15:50 | ED.HA ---
HPI - Headache General Chief Complaint: Headache Stated Complaint: RIGHTSIDED INJURY TO FACE X1 HOUR AGO Time Seen by Provider: 10/12/18 14:46 Source: patient Mode of arrival: ambulatory Limitations: no limitations History of Present Illness HPI Narrative: Patient is a 73-year-old female who had a trip and fall. She was in [place] working at the [employer] when she tripped over a metal strip on the ground. Fell completely forward onto her face landing more on the right side. She is on aspirin no loss of consciousness maybe a brief episode of nausea but no vomiting. She has no weakness numbness or tingling. She does have a contusion on her right forehead and a small superficial laceration on her nose. Related Data Home Medications Medication Instructions Recorded Confirmed calcium carbonate-vitamin D3 500 mg PO 0800 #0 03/13/12 10/07/18 [Oyster Shell Calcium-Vit D3] aspirin 81 mg PO QDAY #0 04/09/17 10/07/18 coQ10 (ubiquinol) 100 mg PO DAILY #0 04/09/17 10/07/18 Bacillus coagulans 10 billion cell cell PO cap 10/07/18 10/07/18 capsule,delayed release calcium polycarbophil 625 mg tablet 1,250 mg PO DAILY 10/07/18 10/07/18 hydrochlorothiazide 25 mg tablet 12.5 mg PO DAILY tab 10/07/18 10/07/18 metoprolol tartrate 25 mg tablet 25 mg PO DAILY tab 10/07/18 10/07/18 Previous Rx's Medication Instructions Recorded rosuvastatin 20 mg tablet 20 mg PO QDAY #90 tab 08/19/18 Allergies Allergy/AdvReac Type Severity Reaction Status Date / Time morphine [MORPHINE] AdvReac Mild MADE ME Verified 10/07/18 17:04 SILVIANO Review of Systems Review of Systems ROS Unobtainable: All systems reviewed & are unremarkable except as noted in HPI and below Constitutional Denies chills, Denies fever(s), Denies lethargy and Denies weakness Eyes Reports as per HPI, Denies blurry vision, Denies change in vision and Denies decreased night vision ENT Ears, Nose, Mouth, and Throat: Denies change in voice, Denies neck pain and Denies sore throat Cardiovascular Denies chest pain, Denies irregular heart rhythm, Denies lightheadedness, Denies palpitations, Denies dyspnea, Denies dyspnea on exertion and Denies orthopnea Respiratory Denies cough, Denies dyspnea, Denies dyspnea on exertion and Denies wheezing Gastrointestinal Gastrointestinal: Denies abdominal pain, Denies change in bowel habits, Denies diarrhea, Denies nausea and Denies vomiting Genitourinary Denies hematuria, Denies flank pain, Denies urinary incontinence and Denies urinary urgency Musculoskeletal Denies neck pain Integumentary/Breasts Denies pruritus, Denies erythema, Denies rash and Denies wounds Neurologic Denies weakness Endocrine Denies palpitations Allergic/Immunologic Denies wheezing [facility] Medical History Hyperlipidemia (Chronic) Hypertension (Chronic 2005) Retinal vascular abnormality (Chronic) Cataract (Resolved 2006) Chicken pox (Resolved 1949) Mumps (Resolved 1949) Ovarian cyst (Resolved 1997) Rubella (Resolved 1949) Surgical History Anesthesia (Resolved) History of cataract removal with insertion of prosthetic lens (Resolved) History of tonsillectomy (Resolved) History of total abdominal hysterectomy (Resolved 05/1998) Status post appendectomy (Resolved) Status post arthroscopy (Resolved 2005) Status post arthroscopy (Resolved 2006) Status post unilateral salpingo-oophorectomy (Resolved 03/1977) Family History (Updated 02/28/18 @ 12:05 by Ashley Tanner) Brother Age: 66 Osteoarthritis Arrhythmia Heart disease Secondary hypertension, unspecified IBS (irritable bowel syndrome) Arthritis Grandfather TB (tuberculosis) Grandmother Heart disease Mother Colon cancer Hyperlipidemia Hypertension CAD (coronary artery disease) Heart valve replaced Grandfather Stroke Grandmother Heart disease Sister Age: 72 IBS (irritable bowel syndrome) Father Rheumatoid arthritis Sister No problems noted. Sister No problems noted. Sister No problems noted. Social History household members: none Smoking Status: Never smoker alcohol intake: current Family History Brother Age: 66 Osteoarthritis Arrhythmia Heart disease Secondary hypertension, unspecified IBS (irritable bowel syndrome) Arthritis Grandfather TB (tuberculosis) Grandmother Heart disease Mother Colon cancer Hyperlipidemia Hypertension CAD (coronary artery disease) Heart valve replaced Grandfather Stroke Grandmother Heart disease Sister Age: 72 IBS (irritable bowel syndrome) Father Rheumatoid arthritis Sister No problems noted. Sister No problems noted. Sister No problems noted. Social History household members: none Smoking Status: Never smoker alcohol intake: current Exam Initial Vital Signs Initial Vital Signs: Vital Signs Temperature 97.5 F L 10/12/18 14:47 Pulse Rate 99 H 10/12/18 14:47 Respiratory Rate 15 10/12/18 14:47 Blood Pressure 181/75 H 10/12/18 14:47 Pulse Oximetry 99 10/12/18 14:47 GENERAL: Alert pleasant elderly female no acute distress HEENT: Head contusion noted over right supraorbital area and forehead. No lacerations. Nose is swollen, no septal hematoma NECK: No vertebral tenderness no step-off full flexion extension and rotation EYES: EOMI, nontender infraorbitally bilaterally. her CARDIOVASCULAR: Regular rate and rhythm without murmurs, rubs or gallops. RESPIRATORY: Breath sounds equal bilaterally, no wheezes rales or rhonchi. ABDOMEN: Soft, nontender. Normoactive bowel sounds all 4 quadrants. No guarding or rebound. EXTREMITIES: Normal range of motion, no clubbing or edema. Neurovascularly intact NEUROLOGICAL: Alert and oriented x4.Normal gait and speech. Cranial nerves II through XII grossly intact. Good [id number]-ovze, good plqz-ws-bwoa, strength equal bilaterally, no dysarthria or aphasia, sensation in tact to soft touch bilaterally, no visual changes, no facial droop SKIN: Warm, dry, no laceration, no petechiae, no rashes or lesions. Procedures Laceration Repair Laceration 1: Site: face (nose bridge) Size (cm): 0.25 Description: linear Depth: simple, single layer Pre-repair: wound explored Skin layer closed with: steri-strips Course Orders Ordered: ED Orders 10/12/18 14:56 CT cervical spine wo con Stat CT head/brain wo con Stat Discontinued Medications Acetaminophen (Tylenol) 975 mg PO NOW ONE Stop: 10/12/18 16:00 Last Admin: 10/12/18 16:00 Dose: 975 mg Vital Signs - 8 hr 10/12/18 14:47 10/12/18 16:01 Temperature 97.5 F L Pulse Rate 99 H 78 Respiratory Rate 15 16 Blood Pressure 181/75 H Blood Pressure [Left Arm] 140/63 Pulse Oximetry 99 99 MDM - Headache Imaging Data CT scan - head: Radiologist's impression: PROCEDURE: CT HEAD/BRAIN WO CON INDICATIONS: fall onto face on asa no loc TECHNIQUE: Noncontrast 4.5 mm thick angled axial sections acquired from the foramen magnum to the vertex, with coronal and sagittal reformats. For radiation dose reduction, the following was used: automated exposure control, adjustment of mA and/or kV according to patient size. COMPARISON: None. FINDINGS: Image quality: Excellent. CSF spaces: Basal cisterns are patent. No extra-axial fluid collections. The ventricles are symmetric in size and shape. There is mild cerebral volume loss, with resultant ventricular and sulcal prominence. Brain: No intracranial hemorrhage, mass, or mass effect. There are subcortical, periventricular and deep white matter hypodensities consistent with mild chronic small vessel ischemic changes. There is intracranial internal carotid artery atherosclerosis. Skull and face: There is right supraorbital soft tissue swelling. Calvarium and visualized facial bones appear intact, without suspicious lesions. Sinuses: Visualized sinuses and mastoids are clear. IMPRESSION: 1. No acute intracranial abnormality. 2. Right supraorbital soft tissue swelling without associated fracture identified. Dictated by: Fredy Trujillo M.D. on 10/12/2018 at 15:31 CT cervical: Radiologist's impression: PROCEDURE: CT CERVICAL SPINE WO CON INDICATIONS: fall flat on face TECHNIQUE: Noncontrast 3 mm thick sections acquired from the skull base to the T4 level. Sagittal and coronal reformats were then constructed. For radiation dose reduction, the following was used: automated exposure control, adjustment of mA and/or kV according to patient size. COMPARISON: None. FINDINGS: Image quality: Excellent. Bones: No fractures or dislocations. There is minimal anterolisthesis at C7-T1. Visualized superior ribs are intact. Multilevel disc space narrowings present including moderate narrowing in the lower cervical spine with mild uncovertebral joint arthropathy. [id number] facet arthropathy also demonstrated throughout the cervical spine. Soft tissues: Prevertebral soft tissues are normal in thickness. No paravertebral hematomas. No apical pneumothoraces. IMPRESSION: 1. No fracture or subluxation. 2. Multilevel degenerative changes throughout the cervical spine as described. Minimal anterolisthesis at C7-T1 likely degenerative in etiology. Dictated by: Fredy Trujillo M.D. on 10/12/2018 at 15:32 Approved by: Fredy Trujillo M.D. on 10/12/2018 at 15:35 MDM Narrative Medical decision making narrative: Patient ambulated into the ER. No actual neck pain however based on patient's mechanism of falling flat onto her face concern for possible cervical injury. at this time no C-collar required. The patient overall feeling a little bit better. Bleeding controlled on bridge of nose. Discharge Plan Departure Patient Disposition: Home Clinical Impression: Closed head injury Qualifiers: Encounter type: initial encounter Qualified Code(s): S09.90XA - Unspecified injury of head, initial encounter Discharge Date/Time: 10/12/18 16:09 Interventions: ED Discharge Assessment Last Done: 10/12/18 16:03 Activity Restrictions/Additional Instructions: *You have been diagnosed with closed head injury *What to do: Head CT and cervical CT were negative today. Expect to have significant right eye swelling tomorrow. Keep pressure and ice over the knows it is a very small cut which should stop bleeding with continuous pressure for 30-60 minute *Continue to take medications as directed Tylenol 650 mg every 4-6 hours if needed for pain *Follow up with your primary care provider in 2-3 days *Return to ER if you should have persistent vomiting worsening headache weakness, seizure activity or any new, worsening or concerning symptoms Prescriptions: No Action calcium carbonate-vitamin D3 [Oyster Shell Calcium-Vit D3] 1,250 MG/200 IU tablet 500 mg PO 0800 Qty: 0 RF: 0 aspirin 81 MG tablet,delayed release (DR/EC) 81 mg PO QDAY Qty: 0 RF: 0 coQ10 (ubiquinol) 100 MG capsule 100 mg PO DAILY Qty: 0 RF: 0 rosuvastatin [Crestor] 20 mg tablet 20 mg PO QDAY Qty: 90 RF: 0 hydrochlorothiazide 25 mg tablet 12.5 mg PO DAILY RF: 0 metoprolol tartrate 25 mg tablet 25 mg PO DAILY RF: 0 Probiotic (B. coagulans) 10 billion cell capsule,delayed release(DR/EC) PO RF: 0 calcium polycarbophil [FiberCon] 625 mg tablet 1,250 mg PO DAILY RF: 0 Referrals: Radha Lopez DO [Primary Care Provider] -
[2018-10-12] MEDS: ACETAMINOPHEN 325 MG TABLET 975 MG PO (16:00)
[2018-10-12 16:01] VITALS: BP 140/63; PULSE 78; RESP 16; O2SAT 99
== END 2018-10-12 16:09 | disposition home or self-care (01) ==
PROVIDERS: Emergency Provider Emergency Medicine; PCP Family Medicine
DX: S09.90XA Unspecified injury of head, initial encounter (principal); W19.XXXA Unspecified fall, initial encounter; R11.0 Nausea
CPT/HCPCS: 70450; 72125; 99283; 99284

== ENCOUNTER → 2018-11-07 14:50 | Outpatient (CLI) | payer MEDICARE, OTHER, SELFPAY ==
--- NOTE | 2018-11-07 14:53 | DI.RAD.S_ITS ---
PROCEDURE: XR CHEST 2V INDICATIONS: cough/fever TECHNIQUE: 2 views of the chest were acquired. COMPARISON: None. FINDINGS: Surgical changes and devices: None. Lungs and pleura: Lungs are clear. No pleural effusions or pneumothorax. Mediastinum: Mediastinal contours are normal. Heart size is normal. Bones and chest wall: No suspicious bony abnormalities. Soft tissues appear unremarkable. IMPRESSION: Normal for age, source of current cough and fever symptoms is not seen. Dictated by: Luke Flores M.D. on 11/07/2018 at 15:32 Approved by: Luke Flores M.D. on 11/07/2018 at 15:33
== END ==
PROVIDERS: PCP Family Medicine; Visit Provider Hospitalist
DX: R05 Cough (principal); R50.9 Fever, unspecified
CPT/HCPCS: 71046

== ENCOUNTER → 2019-02-15 08:32 | Outpatient (CLI) | payer MEDICARE, OTHER, SELFPAY ==
[2019-02-15 09:27] LABS: Add Manual Diff / Slide Review NO; Basophils Absolute Auto 0 /uL (0-100); Basophils Percent Auto 0.6 % (0-2); Eosinophils Absolute Auto 100 /uL (0-450); Eosinophils Percent Auto 1.2 % (2-4); Hematocrit 41.3 % (36-46); Lymphocytes Absolute Auto 1200 /uL (1100-4500); Lymphocytes Percent Auto 19.7 % (25-40); Mean Corpuscular HGB Conc 33.8 % (30-36); Mean Corpuscular Hemoglobin 30.3 PG (26-34); Mean Corpuscular Volume 89.5 fL (80-100); Monocytes Absolute Auto 500 /uL (0-900); Monocytes Percent Auto 7.7 % (3-14); Neutrophils Absolute Auto 4400 /uL (1500-7000); Neutrophils Percent Auto 70.8 % (50-75); Platelet Count 278 X10^3/uL (150-400); Red Blood Cell Count 4.62 X10^6/uL (4.0-5.2); Red Cell Distribution Width 12.7 % (11.6-14.8); White Blood Cell Count 6.2 X10^3/uL (4.5-11.0)
[2019-02-15 09:33] LABS: Alanine Aminotransferase 27 IU/L (9-52); Albumin 4.3 g/dL (3.5-5.0); Albumin Globulin Ratio 1.3 (1.0-2.8); Alkaline Phosphatase 75 U/L (38-126); Aspartate Aminotransferase 25 IU/L (14-36); Blood Urea Nitrogen 21 mg/dL (7-17); Calcium 9.6 mg/dL (8.4-10.2); Carbon Dioxide 29 mmol/L (22-32); Chloride 103 mmol/L (98-107); Cholesterol 166 mg/dL (140-199); Estimated Glomerular Filt Rate > 60.0 mL/min (>60); Globulin 3.2 g/dL (1.7-4.1); Glucose 96 mg/dL (80-110); HDL Cholesterol 43 mg/dL (40-60); HEMOLYSIS < 15 (0-50); LDL Cholesterol Calculated 92 mg/dL (<100); Potassium 4.6 mmol/L (3.4-5.1); Sodium 143 mmol/L (137-145); Total Protein 7.5 g/dL (6.3-8.2); Triglycerides 157 mg/dL (35-150)
== END ==
PROVIDERS: PCP Family Medicine; Visit Provider Family Medicine
DX: E78.5 Hyperlipidemia, unspecified (principal); I10 Essential (primary) hypertension
CPT/HCPCS: 36415; 80053; 80061; 85025

== ENCOUNTER → 2019-04-14 10:48 | Outpatient (CLI) | payer MEDICARE, OTHER, SELFPAY ==
--- NOTE | 2019-04-14 | DI.MG.S_ITS ---
BILATERAL DIGITAL SCREENING MAMMOGRAM 3D/2D WITH CAD: 04/14/2019 CLINICAL: Routine screening. Comparison is made to exams dated: 04/11/2018 mammogram, 04/10/2017 mammogram, 04/07/2016 mammogram, and 12/11/2011 mammogram - [facility]. There are scattered fibroglandular elements in both breasts. Current study was also evaluated with a Computer Aided Detection (CAD) system. No significant masses, calcifications, or other findings are seen in either breast. There has been no significant interval change. IMPRESSION: NEGATIVE There is no mammographic evidence of malignancy. A 1 year screening mammogram is recommended. This exam was interpreted at Station ID: [id number]. NOTE: For mammograms, a report in lay terms will be sent to the patient. Approximately 15% of breast malignancies will not be visualized mammographically. In the management of a palpable breast mass, a negative mammogram must not discourage biopsy of a clinically suspicious lesion. Electronically Signed By: Sola reid/angie:04/14/2019 15:58:26 letter sent: Normal Exam ACR BI-RADS Category 1: Negative [id number]
== END ==
PROVIDERS: PCP Family Medicine; Visit Provider Family Medicine
DX: Z12.31 Encounter for screening mammogram for malignant neoplasm of breast (principal)
CPT/HCPCS: 77063; 77067

== ENCOUNTER 2019-12-24 16:47 | Emergency (ER) | payer MEDICARE, OTHER, SELFPAY ==
[2019-12-24] VITALS (7 sets, daily range): BP systolic 157–228; BP diastolic 79–104; PULSE 65–86; RESP 15–22; TEMP 36.8; O2SAT 97–99
--- NOTE | 2019-12-24 16:57 | ED_ITS ---
HPI - Abdominal Pain <Mynor Panchal DO - Last Filed: 12/26/19 10:58> General Chief Complaint: Abdominal Pain Stated Complaint: PAIN RIGHT PLANK ROUND TO THE FRONT OF ABD Time Seen by Provider: 12/24/19 16:50 Source: patient Limitations: no limitations History of Present Illness HPI narrative: 74-year-old female nonsmoker with history of hypertension and hyperlipidemia presents with a chief complaint of a few days of worsening, episodic right flank pain with radiation around to the front of her abdomen. She states that it seems to come and go without much in the way of provocation or palliation. She has had nausea but denies any vomiting. She has had no fever, chills. She denies any dysuria, frequency or urgency. When present her pain is very intense and crampy. Related Data Home Medications Medication Instructions Recorded Confirmed calcium carbonate-vitamin D3 500 mg PO 0800 #0 03/13/12 03/07/19 [Oyster Shell Calcium-Vit D3] aspirin 81 mg PO QDAY #0 04/09/17 03/07/19 coQ10 (ubiquinol) 100 mg PO DAILY #0 04/09/17 03/07/19 Bacillus coagulans 10 billion cell cell PO cap 10/07/18 03/07/19 capsule,delayed release calcium polycarbophil 625 mg tablet 1,250 mg PO DAILY 10/07/18 03/07/19 Previous Rx's Medication Instructions Recorded hydrochlorothiazide 25 mg tablet 12.5 mg PO DAILY #90 tab 02/20/19 rosuvastatin 20 mg tablet 20 mg PO QDAY #90 tab 02/20/19 metoprolol succinate 25 mg 25 mg PO DAILY #30 tab 02/25/19 tablet,extended release 24 hr ciprofloxacin HCl 500 mg tablet 500 mg PO BID #20 tab 12/16/19 metronidazole 500 mg tablet 500 mg PO TID #30 tab 12/16/19 Allergies Allergy/AdvReac Type Severity Reaction Status Date / Time morphine [MORPHINE] AdvReac Mild MADE ME Verified 03/07/19 11:12 SILVIANO Review of Systems <Mynor Panchal DO - Last Filed: 12/26/19 10:58> Constitutional Constitutional: Denies chills, Denies fatigue, Denies fever(s), Denies frequent falls, Denies lethargy and Denies weakness Eyes Eyes: Denies change in vision, Denies eye discharge, Denies irritation and Denies loss of vision ENT Ears, Nose, Mouth, and Throat: Denies change in voice, Denies dizziness, Denies neck pain, Denies sore throat and Denies throat swelling Cardiovascular Cardiovascular: Denies chest pain, Denies irregular heart rhythm, Denies lightheadedness, Denies palpitations, Denies dyspnea, Denies dyspnea on exertion and Denies orthopnea Respiratory Respiratory: Denies cough, Denies dyspnea, Denies dyspnea on exertion and Denies wheezing Gastrointestinal Gastrointestinal: Reports abdominal pain, Denies change in bowel habits, Denies diarrhea, Denies nausea and Denies vomiting Musculoskeletal Musculoskeletal: Denies neck pain and Denies numbness Integumentary/Breasts Skin/Breast: Denies pruritus, Denies erythema, Denies rash and Denies wounds Neurologic Neurologic: Denies behavioral changes, Denies confusion, Denies dizziness, Denies frequent falls, Denies loss of vision, Denies numbness and Denies weakness Psychiatric Psychiatric: Denies anxiety, Denies behavioral changes, Denies confusion, Denies depression, Denies homicidal ideation and Denies suicidal ideation Endocrine Endocrine: Denies fatigue, Denies flushing and Denies palpitations Hematologic/Lymphatic Hematologic/Lymphatic: Denies easy bruising Allergic/Immunologic Allergic/Immunologic: Denies urticaria, Denies throat swelling and Denies wheezing Patient History <Mynor Panchal DO - Last Filed: 12/26/19 10:58> Medical History Cataract (Resolved 2006) Chicken pox (Resolved 1949) Hyperlipidemia (Chronic) Hypertension (Chronic 2005) Mumps (Resolved 1949) Osteoarthritis of right knee (Acute) Ovarian cyst (Resolved 1997) Retinal vascular abnormality (Chronic) Rubella (Resolved 1949) Surgical History Anesthesia (Resolved) History of cataract removal with insertion of prosthetic lens (Resolved) History of tonsillectomy (Resolved) History of total abdominal hysterectomy (Resolved 05/1998) Status post appendectomy (Resolved) Status post arthroscopy (Resolved 2005) Status post arthroscopy (Resolved 2006) Status post unilateral salpingo-oophorectomy (Resolved 03/1977) Family History Brother Age: 67 Osteoarthritis Arrhythmia Heart disease Secondary hypertension, unspecified IBS (irritable bowel syndrome) Arthritis Grandfather TB (tuberculosis) Grandmother Heart disease Mother Colon cancer Hyperlipidemia Hypertension CAD (coronary artery disease) Heart valve replaced Grandfather Stroke Grandmother Heart disease Sister Age: 73 IBS (irritable bowel syndrome) Father Rheumatoid arthritis Sister No problems noted. Sister No problems noted. Sister No problems noted. Social History household members: none Smoking Status: Never smoker alcohol intake: current Smoking Status: Never smoker alcohol intake frequency: holidays/special occasions only Substance Use Type: does not use Exam <Mynor Panchal DO - Last Filed: 12/26/19 10:58> Narrative Exam Narrative: GENERAL: [74] year old patient appears stated age. Well- nourished, well-developed patient, in mild distress. Rubbing the right side of her abdomen HEAD: Atraumatic. Normocephalic. EYES: Pupils equal round and reactive. Extraocular motions intact. No scleral icterus. No injection or drainage. ENT: Nose without bleeding, purulent drainage. Throat without erythema, t onsillar hypertrophy or exudate. Airway patent. NECK: Trachea midline. Non tender CARDIOVASCULAR: Regular rate and rhythm without murmurs, gallops, or rubs. RESPIRATORY: Clear to auscultation. Breath sounds equal bilaterally. No wheezes, rales, or rhonchi. GASTROINTESTINAL: Abdomen soft, mild right-sided tenderness, nondistended. EXTREMITIES: No edema or joint tenderness. BACK: Nontender without deformity or crepitance. No flank tenderness. NEURO: AOx3. SKIN: No rash or erythema of visible areas Initial Vital Signs Initial Vital Signs: Vital Signs Temperature 98.3 F 12/24/19 17:01 Pulse Rate 86 12/24/19 17:01 Respiratory Rate 22 12/24/19 17:01 Blood Pressure 228/104 H 12/24/19 17:01 Pulse Oximetry 97 12/24/19 17:01 <Earle Kern MD - Last Filed: 12/25/19 17:59> Initial Vital Signs Initial Vital Signs: Vital Signs Temperature 98.3 F 12/24/19 17:01 Pulse Rate 86 07/08/20 17:01 Respiratory Rate 22 12/24/19 17:01 Blood Pressure 228/104 H 12/24/19 17:01 Pulse Oximetry 97 12/24/19 17:01 Course <Mynor Panchal DO - Last Filed: 12/26/19 10:58> Orders Ordered: Discontinued Medications Hydrocodone Bitart/Acetaminophen (Vicodin 5/325 Prepack) 1 bottle MISC SEEINSTR ONE Stop: 12/24/19 22:05 Last Admin: 12/24/19 22:22 Dose: 1 bottle Documented by: MARIA EUGENIA Hydromorphone HCl (Dilaudid) 0.5 mg IV NOW ONE Stop: 12/24/19 20:17 Last Admin: 12/24/19 20:21 Dose: 0.5 mg Documented by: BAUTISTA Lidocaine HCl 4.8 ml/ Sodium (Chloride) 54.8 mls @ 328.8 mls/hr IV NOW ONE Stop: 12/24/19 17:10 Last Admin: 12/24/19 20:03 Dose: Not Given Documented by: BAUTISTA Sodium Chloride (Normal Saline 0.9%) 1,000 mls @ 150 mls/hr IV CONT JOSE Last Infusion: 12/24/19 22:32 Dose: 0 mls/hr Documented by: MARIA EUGENIA Admin: 12/24/19 17:36 Dose: 150 mls/hr Documented by: BAUTISTA Ketorolac Tromethamine (Toradol) 15 mg IV NOW ONE Stop: 12/24/19 17:10 Last Admin: 12/24/19 17:36 Dose: 15 mg Documented by: BAUTISTA Ondansetron HCl (Zofran) 4 mg IV NOW ONE Stop: 12/24/19 17:10 Last Admin: 12/24/19 20:03 Dose: Not Given Documented by: BAUTISTA Vital Signs Vital signs: Vital Signs - 8 hr 12/24/19 17:01 12/24/19 17:02 12/24/19 17:30 Temperature 98.3 F Pulse Rate 86 85 Respiratory Rate 22 20 Blood Pressure 228/104 H 167/80 H Pulse Oximetry 97 97 12/24/19 18:00 12/24/19 18:30 12/24/19 19:00 Temperature Pulse Rate 65 79 Respiratory Rate 15 16 Blood Pressure 161/79 H 157/80 H Pulse Oximetry 99 99 07/08/20 19:30 Temperature Pulse Rate 72 Respiratory Rate 18 Blood Pressure Pulse Oximetry 98 <Earle Kern MD - Last Filed: 12/25/19 17:59> Course Course Narrative: Time 8:[address] panchal, ultrasound is pending. CT scan has been completed. As well as blood work. Dispo pending on pain control and results of ultrasound. If normal ultrasound can follow-up as well as the pain is controlled Hydrocodone 5 mg tablets provided to patient as it is 10:00 a.m. at night Orders Ordered: Discontinued Medications Hydrocodone Bitart/Acetaminophen (Vicodin 5/325 Prepack) 1 bottle MISC SEEINSTR ONE Stop: 12/24/19 22:05 Last Admin: 12/24/19 22:22 Dose: 1 bottle Documented by: MARIA EUGENIA Hydromorphone HCl (Dilaudid) 0.5 mg IV NOW ONE Stop: 12/24/19 20:17 Last Admin: 12/24/19 20:21 Dose: 0.5 mg Documented by: BAUTISTA Lidocaine HCl 4.8 ml/ Sodium (Chloride) 54.8 mls @ 328.8 mls/hr IV NOW ONE Stop: 12/24/19 17:10 Last Admin: 12/24/19 20:03 Dose: Not Given Documented by: BAUTISTA Sodium Chloride (Normal Saline 0.9%) 1,000 mls @ 150 mls/hr IV CONT JOSE Last Infusion: 12/24/19 22:32 Dose: 0 mls/hr Documented by: MARIA EUGENIA Admin: 12/24/19 17:36 Dose: 150 mls/hr Documented by: BAUTISTA Ketorolac Tromethamine (Toradol) 15 mg IV NOW ONE Stop: 12/24/19 17:10 Last Admin: 12/24/19 17:36 Dose: 15 mg Documented by: BAUTISTA Ondansetron HCl (Zofran) 4 mg IV NOW ONE Stop: 12/24/19 17:10 Last Admin: 12/24/19 20:03 Dose: Not Given Documented by: BAUTISTA Reevaluation(s) Reevaluation #1: Patient pain-free at this time. Family at bedside. Reviewed CAT scan laboratory work and ultrasound with patient and family. Informed and they may need HIDA scan as well. Patient have appointment already next Sunday with family physician taken range. Time: 22:03 Vital Signs Vital signs: Vital Signs - 8 hr 12/24/19 17:01 12/24/19 17:02 12/24/19 17:30 Temperature 98.3 F Pulse Rate 86 85 Respiratory Rate 22 20 Blood Pressure 228/104 H 167/80 H Pulse Oximetry 97 97 12/24/19 18:00 12/24/19 18:30 12/24/19 19:00 Temperature Pulse Rate 65 79 Respiratory Rate 15 16 Blood Pressure 161/79 H 157/80 H Pulse Oximetry 99 99 12/24/19 19:30 Temperature Pulse Rate 72 Respiratory Rate 18 Blood Pressure Pulse Oximetry 98 MDM - Abdominal Pain <Mynor Panchal DO - Last Filed: 12/26/19 10:58> Lab Data Result diagrams: 12/24/19 17:52 12/24/19 17:52 Labs: Lab Results 12/24/19 12/24/19 12/24/19 Range/Units 17:52 17:52 17:52 WBC 6.9 (4.5-11.0) X10^3/uL RBC 4.58 (4.0-5.2) X10^6/uL Hgb 13.9 (12.0-16.0) g/dL Hct 40.8 (36-46) % MCV 89.1 (80-100) fL MCH 30.3 (26-34) PG MCHC 34.1 (30-36) % RDW 12.9 (11.6-14.8) % Plt Count 326 (150-400) X10^3/uL Neut % (Auto) 65.1 (50-75) % Lymph % (Auto) 23.8 L (25-40) % Sully % (Auto) 9.7 (3-14) % Eos % (Auto) 0.9 L (2-4) % Baso % (Auto) 0.5 (0-2) % Neut # (Auto) 4500 (4674-7872) /uL Lymph # (Auto) 1600 (7142-2617) /uL Sully # (Auto) 700 (0-900) /uL Eos # (Auto) 100 (0-450) /uL Baso # (Auto) 0 (0-100) /uL Sodium 137 (137-145) mmol/L Potassium 3.4 (3.4-5.1) mmol/L Chloride 101 (98-107) mmol/L Carbon Dioxide 27 (22-32) mmol/L BUN 18 H (7-17) mg/dL Creatinine 0.81 (0.52-1.04) mg/dL Estimated GFR > 60.0 (>60) mL/min BUN/Creatinine Ratio 22.2 H (6-22) Glucose 102 (80-110) mg/dL Lactate 1.4 (0.7-2.1) mmol/L Calcium 10.4 H (8.4-10.2) mg/dL Total Bilirubin 0.6 (0.2-1.3) mg/dL AST 36 (14-36) IU/L ALT 25 (<35) IU/L Alkaline Phosphatase 55 (38-126) U/L Total Protein 7.5 (6.3-8.2) g/dL Albumin 4.6 (3.5-5.0) g/dL Globulin 2.9 (1.7-4.1) g/dL Albumin/Globulin Ratio 1.6 (1.0-2.8) Lipase 195 (23-300) U/L Point of care testing: Urine Dip Bedside Urine Glucose Negative Bedside Urine Bilirubin - Negative Bedside Urine Ketone - Negative Urine Specific Kingsley 1.015 Bedside Urine Occult Blood - Negative Bedside Urine pH 6.0 Bedside Urine Protein - Negative Bedside Urine Urobilinogen - Negative Bedside Urine Nitrite - Negative Bedside Urine Leukocytes - Negative Esterase Imaging Data CT scan - abdomen/pelvis: Radiologist's Impression: Corie Mills 74 [address] [place] [address] CT Scan Report Signed Patient: Corie Mills EMR#: [id number] : 4Acct:[id number] Age/Sex: 74 / FDate of Service: 12/24/19 Loc: ED Accession Number: [id number] Procedure: CT abdomen pelvis w con Ordering Provider: Mynor Panchal D.O. PROCEDURE: CT ABDOMEN PELVIS W CON INDICATIONS: severe RLQ pain TECHNIQUE: After the administration of intravenous contrast, 5 mm thick sections acquired from the diaphragm to the symphysis. 5 mm coronal and sagittal reformats were acquired. For radiation dose reduction, the following was used: automated exposure control, adjustment of mA and/or kV according to patient size. COMPARISON: [facility], CT, CT ABDOMEN PELVIS W CON, 03/12/2018, 16:33. [facility], CT, CT ABDOMEN PELVIS W CON, 03/15/2018, 12:10. FINDINGS: Image quality: Excellent. ABDOMEN: Lung bases: Lung bases are clear. Heart size is normal. There is a small hiatal hernia. Solid organs: Liver is normal in size and enhancement. Gallbladder may contain small gallstones. Biliary system is non dilated. Pancreas enhances normally. Spleen is normal in size and enhancement. No adrenal nodules. Kidneys demonstrate normal size and enhancement, without hydronephrosis. Peritoneum and bowel: There are numerous colonic diverticula in sigmoid colon. There is no CT findings to suggest acute diverticulitis. Appendix is not visualized. No CT findings to suggest acute appendicitis. Bowel loops demonstrate normal wall thickness and caliber. No free fluid or air. Nodes and vessels: No retroperitoneal or mesenteric adenopathy by size criteria. Aorta and inferior vena cava are normal in size. Miscellaneous: No ventral hernias. PELVIS: Genitourinary: Bladder wall thickness is normal. Miscellaneous: No inguinal adenopathy. Bilateral fat containing inguinal hernias. Bones: No suspicious bony lesions. No vertebral body compression fractures. There are severe degenerative changes in lumbar spine. IMPRESSION: 1. Diverticulosis without acute diverticulitis. 2. Appendix is not identified. There are no secondary signs for acute appendicitis. 3. Probable gallstones. 4. Small hiatal hernia. Dictated by: Avril Burnham M.D. on 12/24/2019 at 20:03 Approved by: Avril Burnham M.D. on 12/24/2019 at 20:10 MDM Narrative Medical decision making narrative: Multiple etiologies for patient's symptoms considered including: [kidney stones vs. GB disease vs. bowel obstruction vs. other] Patient's symptoms improved or duration of stay with above-stated therapies. Findings and discharge diagnosis discussed with patient/family followed by verbalization of understanding Return precautions discussed with patient/family whom verbalize understanding. <Earle Kern MD - Last Filed: 12/25/19 17:59> Lab Data Labs: Lab Results 12/24/19 12/24/19 12/24/19 Range/Units 17:52 17:52 17:52 WBC 6.9 (4.5-11.0) X10^3/uL RBC 4.58 (4.0-5.2) X10^6/uL Hgb 13.9 (12.0-16.0) g/dL Hct 40.8 (36-46) % MCV 89.1 (80-100) fL MCH 30.3 (26-34) PG MCHC 34.1 (30-36) % RDW 12.9 (11.6-14.8) % Plt Count 326 (150-400) X10^3/uL Neut % (Auto) 65.1 (50-75) % Lymph % (Auto) 23.8 L (25-40) % Sully % (Auto) 9.7 (3-14) % Eos % (Auto) 0.9 L (2-4) % Baso % (Auto) 0.5 (0-2) % Neut # (Auto) 4500 (0270-2743) /uL Lymph # (Auto) 1600 (1368-2135) /uL Sully # (Auto) 700 (0-900) /uL Eos # (Auto) 100 (0-450) /uL Baso # (Auto) 0 (0-100) /uL Sodium 137 (137-145) mmol/L Potassium 3.4 (3.4-5.1) mmol/L Chloride 101 (98-107) mmol/L Carbon Dioxide 27 (22-32) mmol/L BUN 18 H (7-17) mg/dL Creatinine 0.81 (0.52-1.04) mg/dL Estimated GFR > 60.0 (>60) mL/min BUN/Creatinine Ratio 22.2 H (6-22) Glucose 102 (80-110) mg/dL Lactate 1.4 (0.7-2.1) mmol/L Calcium 10.4 H (8.4-10.2) mg/dL Total Bilirubin 0.6 (0.2-1.3) mg/dL AST 36 (14-36) IU/L ALT 25 (<35) IU/L Alkaline Phosphatase 55 (38-126) U/L Total Protein 7.5 (6.3-8.2) g/dL Albumin 4.6 (3.5-5.0) g/dL Globulin 2.9 (1.7-4.1) g/dL Albumin/Globulin Ratio 1.6 (1.0-2.8) Lipase 195 (23-300) U/L Point of care testing: Urine Dip Bedside Urine Glucose Negative Bedside Urine Bilirubin - Negative Bedside Urine Ketone - Negative Urine Specific Kingsley 1.015 Bedside Urine Occult Blood - Negative Bedside Urine pH 6.0 Bedside Urine Protein - Negative Bedside Urine Urobilinogen - Negative Bedside Urine Nitrite - Negative Bedside Urine Leukocytes - Negative Esterase Imaging Data US - abdomen: Radiologist's Impression: [address] [address] Ultrasound Report Signed Patient: Corie Mills EMR#: [id number] : 4Acct:[id number] Age/Sex: 74 / FDate of Service: 12/24/19 Loc: ED Accession Number: [id number] Procedure: US abdomen limited Ordering Provider: Mynor Panchal D.O. PROCEDURE: US ABDOMEN LIMITED INDICATIONS: RUQ PAIN; POSSIBLE ABNORMAL GB ON CT TECHNIQUE: Real-time scanning was performed of the abdominal and retroperitoneal organs, with image documentation. COMPARISON: [facility], CT, CT ABDOMEN PELVIS W CON, 03/15/2018, 12:10. [facility], CT, CT ABDOMEN PELVIS W CON, 12/24/2019, 18:38. FINDINGS: Liver: Liver is normal in size and demonstrates increased echotexture. Gallbladder: No gallstones. No gallbladder wall thickening, pericholecystic fluid or sonographic Dong's sign. Biliary ducts: Intrahepatic bile ducts are non-dilated. Extrahepatic bile duct caliber measures 5.3 mm. Normal is 6-7 mm or less in diameter, or 10 mm or less post-cholecystectomy. Pancreas: Visualized portions of the pancreas are normal in echotexture. The pancreatic duct is prominent measuring 4 mm. Spleen: Spleen is normal in size and homogeneous in echotexture. Miscellaneous: No free abdominal fluid. IMPRESSION: 1. Normal gallbladder. No gallstones. 2. Diffusely increased hepatic echotexture. This finding is most likely secondary to hepatic fatty infiltration although other hepatocellular disease may have a similar appearance. Recommend clinical correlation. 3. Prominent pancreatic duct. A cause is not identified. MRCP is suggested for followup evaluation. Dictated by: Avril Burnham M.D. on 12/24/2019 at 21:25 Approved by: Avril Burnham M.D. on 12/24/2019 at 21:28 MDM Narrative Medical decision making narrative: Appropriate for discharge home at this time. Patient is not toxic. Laboratory studies CT scan and ultrasound are unremarkable at this time. Pain is controlled. Patient does have good follow- up with family physician already scheduled next Sunday. Discharge Plan Departure Patient Disposition: Home Clinical Impression: Abdominal pain Qualifiers: Abdominal location: right upper quadrant Qualified Code(s): R10.11 - Right upper quadrant pain Discharge Date/Time: 12/24/19 22:00 Instructions: DI for Abdominal Pain-Adult Activity Restrictions/Additional Instructions: See family doctor next Sunday as scheduled. Return immediately if worse. May need to schedule a HIDA scan with your family doctor as we discussed tonight. No driving with taking pain medication provided to you to night. May take 1 pill every 6 hours as needed for pain. Prescriptions: No Action calcium carbonate-vitamin D3 [Oyster Shell Calcium-Vit D3] 1,250 MG/200 IU tablet 500 mg PO 0800 Qty: 0 RF: 0 aspirin 81 MG tablet,delayed release (DR/EC) 81 mg PO QDAY Qty: 0 RF: 0 coQ10 (ubiquinol) 100 MG capsule 100 mg PO DAILY Qty: 0 RF: 0 metoprolol succinate 25 mg tablet extended release 24 hr 25 mg PO DAILY Qty: 30 RF: 3 ciprofloxacin HCl 500 mg tablet 500 mg PO BID Qty: 20 RF: 0 metronidazole [Flagyl] 500 mg tablet 500 mg PO TID Qty: 30 RF: 0 Probiotic (B. coagulans) 10 billion cell capsule,delayed release(DR/EC) PO RF: 0 calcium polycarbophil [FiberCon] 625 mg tablet 1,250 mg PO DAILY RF: 0 hydrochlorothiazide 25 mg tablet 12.5 mg PO DAILY Qty: 90 RF: 3 rosuvastatin [Crestor] 20 mg tablet 20 mg PO QDAY Qty: 90 RF: 3 Referrals: Radha Lopez DO [Primary Care Provider] -
--- NOTE | 2019-12-24 17:20 | DI.CT.S_ITS ---
PROCEDURE: CT ABDOMEN PELVIS W CON INDICATIONS: severe RLQ pain TECHNIQUE: After the administration of intravenous contrast, 5 mm thick sections acquired from the diaphragm to the symphysis. 5 mm coronal and sagittal reformats were acquired. For radiation dose reduction, the following was used: automated exposure control, adjustment of mA and/or kV according to patient size. COMPARISON: [facility], CT, CT ABDOMEN PELVIS W CON, 03/12/2018, 16:33. [facility], CT, CT ABDOMEN PELVIS W CON, 03/15/2018, 12:10. FINDINGS: Image quality: Excellent. ABDOMEN: Lung bases: Lung bases are clear. Heart size is normal. There is a small hiatal hernia. Solid organs: Liver is normal in size and enhancement. Gallbladder may contain small gallstones. Biliary system is non dilated. Pancreas enhances normally. Spleen is normal in size and enhancement. No adrenal nodules. Kidneys demonstrate normal size and enhancement, without hydronephrosis. Peritoneum and bowel: There are numerous colonic diverticula in sigmoid colon. There is no CT findings to suggest acute diverticulitis. Appendix is not visualized. No CT findings to suggest acute appendicitis. Bowel loops demonstrate normal wall thickness and caliber. No free fluid or air. Nodes and vessels: No retroperitoneal or mesenteric adenopathy by size criteria. Aorta and inferior vena cava are normal in size. Miscellaneous: No ventral hernias. PELVIS: Genitourinary: Bladder wall thickness is normal. Miscellaneous: No inguinal adenopathy. Bilateral fat containing inguinal hernias. Bones: No suspicious bony lesions. No vertebral body compression fractures. There are severe degenerative changes in lumbar spine. IMPRESSION: 1. Diverticulosis without acute diverticulitis. 2. Appendix is not identified. There are no secondary signs for acute appendicitis. 3. Probable gallstones. 4. Small hiatal hernia. Dictated by: Avril Burnham M.D. on 12/24/2019 at 20:03 Approved by: Avril Burnham M.D. on 12/24/2019 at 20:10
[2019-12-24] MEDS: KETOROLAC 60 MG/2 ML VIAL 15 MG IV (17:36)
[2019-12-24] MEDS: SODIUM CHLORIDE 0.9% 1,000 ML 150 ML IV (17:36)
[2019-12-24 18:01] LABS: Add Manual Diff / Slide Review NO; Basophils Absolute Auto 0 /uL (0-100); Basophils Percent Auto 0.5 % (0-2); Eosinophils Absolute Auto 100 /uL (0-450); Eosinophils Percent Auto 0.9 % (2-4); Hematocrit 40.8 % (36-46); Hemoglobin 13.9 g/dL (12.0-16.0); Lymphocytes Absolute Auto 1600 /uL (1100-4500); Lymphocytes Percent Auto 23.8 % (25-40); Mean Corpuscular HGB Conc 34.1 % (30-36); Mean Corpuscular Hemoglobin 30.3 PG (26-34); Mean Corpuscular Volume 89.1 fL (80-100); Monocytes Absolute Auto 700 /uL (0-900); Monocytes Percent Auto 9.7 % (3-14); Neutrophils Absolute Auto 4500 /uL (1500-7000); Neutrophils Percent Auto 65.1 % (50-75); Platelet Count 326 X10^3/uL (150-400); Red Blood Cell Count 4.58 X10^6/uL (4.0-5.2); Red Cell Distribution Width 12.9 % (11.6-14.8); White Blood Cell Count 6.9 X10^3/uL (4.5-11.0)
[2019-12-24 18:13] LABS: Lactate (Lactic Acid) 1.4 mmol/L (0.7-2.1)
[2019-12-24 18:14] LABS: Alanine Aminotransferase 25 IU/L (<35); Albumin 4.6 g/dL (3.5-5.0); Albumin Globulin Ratio 1.6 (1.0-2.8); Alkaline Phosphatase 55 U/L (38-126); Aspartate Aminotransferase 36 IU/L (14-36); BUN Creatinine Ratio 22.2 (6-22); Bilirubin Total 0.6 mg/dL (0.2-1.3); Blood Urea Nitrogen 18 mg/dL (7-17); Calcium 10.4 mg/dL (8.4-10.2); Carbon Dioxide 27 mmol/L (22-32); Chloride 101 mmol/L (98-107); Estimated Glomerular Filt Rate > 60.0 mL/min (>60); Globulin 2.9 g/dL (1.7-4.1); Glucose 102 mg/dL (80-110); HEMOLYSIS < 15 (0-50); Lipase 195 U/L (23-300); Potassium 3.4 mmol/L (3.4-5.1); Sodium 137 mmol/L (137-145); Total Protein 7.5 g/dL (6.3-8.2)
--- NOTE | 2019-12-24 20:16 | DI.US.S_ITS ---
PROCEDURE: US ABDOMEN LIMITED INDICATIONS: RUQ PAIN; POSSIBLE ABNORMAL GB ON CT TECHNIQUE: Real-time scanning was performed of the abdominal and retroperitoneal organs, with image documentation. COMPARISON: [facility], CT, CT ABDOMEN PELVIS W CON, 03/15/2018, 12:10. [facility], CT, CT ABDOMEN PELVIS W CON, 12/24/2019, 18:38. FINDINGS: Liver: Liver is normal in size and demonstrates increased echotexture. Gallbladder: No gallstones. No gallbladder wall thickening, pericholecystic fluid or sonographic Dong's sign. Biliary ducts: Intrahepatic bile ducts are non-dilated. Extrahepatic bile duct caliber measures 5.3 mm. Normal is 6-7 mm or less in diameter, or 10 mm or less post-cholecystectomy. Pancreas: Visualized portions of the pancreas are normal in echotexture. The pancreatic duct is prominent measuring 4 mm. Spleen: Spleen is normal in size and homogeneous in echotexture. Miscellaneous: No free abdominal fluid. IMPRESSION: 1. Normal gallbladder. No gallstones. 2. Diffusely increased hepatic echotexture. This finding is most likely secondary to hepatic fatty infiltration although other hepatocellular disease may have a similar appearance. Recommend clinical correlation. 3. Prominent pancreatic duct. A cause is not identified. MRCP is suggested for followup evaluation. Dictated by: Avril Burnham M.D. on 12/24/2019 at 21:25 Approved by: Avril Burnham M.D. on 12/24/2019 at 21:28
[2019-12-24] MEDS: HYDROMORPHONE 0.5 MG INJ IV (20:21)
[2019-12-24] MEDS: HYDROCODONE/ACET 5/325 PREPACK 1 BOTTLE MISC (22:22)
== END 2019-12-24 22:00 | disposition home or self-care (01) ==
PROVIDERS: Emergency Medicine; Emergency Provider Emergency Medicine; PCP Family Medicine
DX: R10.11 Right upper quadrant pain (principal)
CPT/HCPCS: 36415; 74177; 76705; 80053; 81003; 83605; 83690; 85025; 96361; 96374; 96375; 99284; 99285; J1170; J1885; Q9967

== ENCOUNTER → 2020-02-05 09:27 | Outpatient (CLI) | payer MEDICARE, OTHER, SELFPAY ==
[2020-02-05 10:04] LABS: Alanine Aminotransferase 28 IU/L (<35); Albumin 4.5 g/dL (3.5-5.0); Albumin Globulin Ratio 1.5 (1.0-2.8); Alkaline Phosphatase 69 U/L (38-126); Aspartate Aminotransferase 30 IU/L (14-36); Blood Urea Nitrogen 21 mg/dL (7-17); Calcium 9.6 mg/dL (8.4-10.2); Carbon Dioxide 28 mmol/L (22-32); Chloride 103 mmol/L (98-107); Cholesterol 177 mg/dL (140-199); Estimated Glomerular Filt Rate > 60.0 mL/min (>60); Glucose 91 mg/dL (80-110); HDL Cholesterol 38 mg/dL (40-60); HEMOLYSIS < 15 (0-50); LDL Cholesterol Calculated 100 mg/dL (<100); Potassium 4.2 mmol/L (3.4-5.1); Sodium 138 mmol/L (137-145); Total Protein 7.5 g/dL (6.3-8.2); Triglycerides 193 mg/dL (35-150)
== END ==
PROVIDERS: PCP Family Medicine; Referring Provider Family Medicine; Visit Provider Family Medicine
DX: E78.5 Hyperlipidemia, unspecified (principal); I10 Essential (primary) hypertension
CPT/HCPCS: 36415; 80053; 80061

== ENCOUNTER → 2020-04-14 12:36 | Outpatient (CLI) | payer MEDICARE, OTHER, SELFPAY ==
[2020-03-26 14:52] VITALS: BMI 26.4
[2020-04-14 14:06] LABS: BUN Creatinine Ratio 42.2 (6-22); Blood Urea Nitrogen 27 mg/dL (7-17); Calcium 9.7 mg/dL (8.4-10.2); Carbon Dioxide 31 mmol/L (22-32); Chloride 100 mmol/L (98-107); Estimated Glomerular Filt Rate > 60.0 mL/min (>60); Glucose 83 mg/dL (80-110); HEMOLYSIS < 15 (0-50); Potassium 3.9 mmol/L (3.4-5.1); Sodium 138 mmol/L (137-145)
== END ==
PROVIDERS: PCP Family Medicine; Referring Provider Family Medicine; Visit Provider Family Medicine
DX: I10 Essential (primary) hypertension (principal)
CPT/HCPCS: 36415; 80048

== ENCOUNTER → 2020-04-15 10:46 | Outpatient (CLI) | payer MEDICARE, OTHER, SELFPAY ==
[2020-03-26 14:52] VITALS: BMI 26.4
--- NOTE | 2020-04-15 | DI.MG.S_ITS ---
BILATERAL DIGITAL SCREENING MAMMOGRAM 3D/2D WITH CAD: 04/15/2020 CLINICAL: Routine screening. Comparison is made to exams dated: 04/14/2019 mammogram, 04/11/2018 mammogram, and 04/10/2017 mammogram - [facility]. There are scattered fibroglandular elements in both breasts. Current study was also evaluated with a Computer Aided Detection (CAD) system. No significant masses, calcifications, or other findings are seen in either breast. There has been no significant interval change. IMPRESSION: NEGATIVE There is no mammographic evidence of malignancy. A 1 year screening mammogram is recommended. This exam was interpreted at Station ID: [id number]. NOTE: For mammograms, a report in lay terms will be sent to the patient. Approximately 15% of breast malignancies will not be visualized mammographically. In the management of a palpable breast mass, a negative mammogram must not discourage biopsy of a clinically suspicious lesion. Electronically Signed By: Inderjit mackey/angie:04/15/2020 16:30:38 letter sent: Normal Exam ACR BI-RADS Category 1: Negative 3341F
== END ==
PROVIDERS: PCP Family Medicine; Referring Provider Family Medicine; Visit Provider Family Medicine
DX: Z12.31 Encounter for screening mammogram for malignant neoplasm of breast (principal)
CPT/HCPCS: 77063; 77067

== ENCOUNTER → 2021-03-09 08:10 | Outpatient (CLI) | payer MEDICARE, OTHER, SELFPAY ==
[2020-03-26 14:52] VITALS: BMI 26.4
[2021-03-09 10:33] LABS: Blood Urea Nitrogen 27 mg/dL (7-17); Carbon Dioxide 30 mmol/L (22-32); Chloride 103 mmol/L (98-107); Estimated Glomerular Filt Rate > 60.0 mL/min (>60); Glucose 91 mg/dL (80-110); HEMOLYSIS < 15 (0-50); Potassium 4.7 mmol/L (3.4-5.1); Sodium 141 mmol/L (137-145)
== END ==
PROVIDERS: PCP Family Medicine; Referring Provider Family Medicine; Visit Provider Family Medicine
DX: I10 Essential (primary) hypertension (principal)
CPT/HCPCS: 36415; 80048

== ENCOUNTER → 2021-04-16 10:33 | Outpatient (CLI) | payer MEDICARE, OTHER, SELFPAY ==
[2020-03-26 14:52] VITALS: BMI 26.4
--- NOTE | 2021-04-16 10:35 | DI.MG.S_ITS ---
BILATERAL DIGITAL SCREENING MAMMOGRAM 3D/2D WITH CAD: 04/16/2021 CLINICAL: Routine screening. Comparison is made to exams dated: 04/15/2020 mammogram, 04/14/2019 mammogram, and 04/11/2018 mammogram - [facility]. There are scattered fibroglandular elements in both breasts. Current study was also evaluated with a Computer Aided Detection (CAD) system. No significant masses, calcifications, or other findings are seen in either breast. There has been no significant interval change. IMPRESSION: NEGATIVE There is no mammographic evidence of malignancy. A 1 year screening mammogram is recommended. This exam was interpreted at Station ID: [id number]. NOTE: For mammograms, a report in lay terms will be sent to the patient. Approximately 15% of breast malignancies will not be visualized mammographically. In the management of a palpable breast mass, a negative mammogram must not discourage biopsy of a clinically suspicious lesion. Electronically Signed By: Hermilo Marcelo M.D. at/angie:04/18/2021 09:04:05 letter sent: Normal Exam ACR BI-RADS Category 1: Negative 3341F
== END ==
PROVIDERS: PCP Family Medicine; Referring Provider Family Medicine; Visit Provider Family Medicine
DX: Z12.31 Encounter for screening mammogram for malignant neoplasm of breast (principal)
CPT/HCPCS: 77063; 77067

== ENCOUNTER → 2022-03-16 08:16 | Outpatient (CLI) | payer MEDICARE, OTHER, SELFPAY ==
[2020-03-26 14:52] VITALS: BMI 26.4
[2022-03-16 10:18] LABS: Alanine Aminotransferase 21 IU/L (<35); Albumin 4.2 g/dL (3.5-5.0); Albumin Globulin Ratio 1.5 (1.0-2.8); Alkaline Phosphatase 77 U/L (38-126); Aspartate Aminotransferase 25 IU/L (14-36); BUN Creatinine Ratio 26.3 (6-22); Bilirubin Total 0.6 mg/dL (0.2-1.3); Blood Urea Nitrogen 20 mg/dL (7-17); Calcium 9.3 mg/dL (8.4-10.2); Carbon Dioxide 30 mmol/L (22-32); Chloride 101 mmol/L (98-107); Cholesterol 151 mg/dL (140-199); Estimated Glomerular Filt Rate > 60 mL/min (>60); Globulin 2.8 g/dL (1.7-4.1); Glucose 92 mg/dL (80-110); HDL Cholesterol 48 mg/dL (40-60); HEMOLYSIS < 15 (0-50); LDL Cholesterol Calculated 83 mg/dL (<100); Potassium 4.3 mmol/L (3.4-5.1); Sodium 139 mmol/L (137-145); Triglycerides 99 mg/dL (35-150)
[2022-03-16 11:22] LABS: Creatinine Urine Random 104.5 mg/dL
[2022-03-16 11:30] LABS: Microalbumi Creatinin Ratio Ur 6.6 ug/mg CR (<30); Microalbumin Urine Random 0.7 mg/dL (0-1.6)
== END ==
PROVIDERS: PCP Family Medicine; Referring Provider Family Medicine; Visit Provider Family Medicine
DX: I10 Essential (primary) hypertension (principal); E78.00 Pure hypercholesterolemia, unspecified
CPT/HCPCS: 36415; 80053; 80061; 82043; 82570

== ENCOUNTER → 2022-04-17 10:46 | Outpatient (CLI) | payer MEDICARE, OTHER, SELFPAY ==
[2020-03-26 14:52] VITALS: BMI 26.4
--- NOTE | 2022-04-17 | DI.MG.S_ITS ---
BILATERAL DIGITAL SCREENING MAMMOGRAM 3D/2D WITH CAD: 04/17/2022 CLINICAL: Routine screening. Comparison is made to exams dated: 04/16/2021 mammogram, 04/15/2020 mammogram, and 04/14/2019 mammogram - [facility]. There are scattered areas of fibroglandular density in both breasts (category b / 25%-50% glandular tissue). Current study was also evaluated with a Computer Aided Detection (CAD) system. No significant masses, calcifications, or other findings are seen in either breast. There has been no significant interval change. IMPRESSION: NEGATIVE There is no mammographic evidence of malignancy. A 1 year screening mammogram is recommended. Based on the Tyrer Cuzick model (a risk assessment model) the patient's lifetime risk is 2.0% and her 10 year risk is 0.0%. According to the ACR, ACS, and NCCN guidelines, an annual breast MRI exam along with mammogram is recommended if the patient's lifetime risk is 20% or greater. This exam was interpreted at Station ID: [id number]. NOTE: For mammograms, a report in lay terms will be sent to the patient. Approximately 15% of breast malignancies will not be visualized mammographically. In the management of a palpable breast mass, a negative mammogram must not discourage biopsy of a clinically suspicious lesion. Electronically Signed By: Geneva childers/angie:04/18/2022 09:02:19 letter sent: Normal Exam ACR BI-RADS Category 1: Negative 3341F
== END ==
PROVIDERS: PCP Family Medicine; Referring Provider Family Medicine; Visit Provider Family Medicine
DX: Z12.31 Encounter for screening mammogram for malignant neoplasm of breast; Z13.820 Encounter for screening for osteoporosis; Z78.0 Asymptomatic menopausal state
CPT/HCPCS: 77063; 77067; 77080

== ENCOUNTER → 2022-11-09 07:51 | Outpatient (CLI) | payer MEDICARE, OTHER, SELFPAY ==
[2020-03-26 14:52] VITALS: BMI 26.4
--- NOTE | 2022-11-09 07:52 | DI.US.S_ITS ---
PROCEDURE: US CAROTID DOPPLER BI INDICATIONS: PRE-SYNCOPAL EPISODES X 2 TECHNIQUE: Color and pulse Doppler interrogation was performed of both carotid systems, with image documentation and velocity measurements. COMPARISON: None. FINDINGS: Stenosis calculations are based on SRU (Society of Radiologists in Ultrasound) criteria. Right side: Brachial blood pressure: 123/72 mm Hg. Common carotid artery peak systolic velocity: 111 cm/sec. Internal carotid artery peak systolic velocity: 108 cm/sec. Internal carotid artery end diastolic velocity: 118 cm/sec. External carotid artery peak systolic velocity: 83 cm/sec. ICA/CCA peak systolic ratio: 1.0 . Padilla scale imaging description: Mild plaque at the bifurcation Percent internal carotid artery stenosis: Less than 50% . Vertebral artery: Flow direction is antegrade. Left side: Brachial blood pressure: 125/69 mm Hg. Common carotid artery peak systolic velocity: 99 cm/sec. Internal carotid artery peak systolic velocity: 96 cm/sec. Internal carotid artery end diastolic velocity: 127 cm/sec. External carotid artery peak systolic velocity: 115 cm/sec. ICA/CCA peak systolic ratio: 1.3 . Padilla scale imaging description: Mild plaque at the bifurcation Percent internal carotid artery stenosis: Less than 50% . Vertebral artery: Flow direction is antegrade. IMPRESSION: Less than 50% stenosis of the internal carotid arteries bilaterally. Dictated by: Xiomara Luke M.D. on 11/09/2022 at 11:45 Approved by: Xiomara Luke M.D. on 11/09/2022 at 11:54
== END ==
PROVIDERS: PCP Family Medicine; Referring Provider Physician Assistant; Visit Provider Physician Assistant
DX: R55 Syncope and collapse (principal)
CPT/HCPCS: 93880

== ENCOUNTER → 2022-12-22 10:18 | Outpatient (CLI) | payer MEDICARE, OTHER, SELFPAY ==
[2020-03-26 14:52] VITALS: BMI 26.4
--- NOTE | 2022-12-22 10:20 | DI.NM.S_ITS ---
PROCEDURE: NM PRABHAKAR PERF SPECT REST & STR Rest and exercise myocardial perfusion SPECT with gated imaging and ejection fraction RADIOPHARMACEUTICAL: 12.2 mCi Tc-99m sestamibi IV at rest and 27 mCi Tc-99m sestamibi IV at peak exercise. A 3-xko-djmpdulq was performed. INDICATIONS: Pre Syncope, Hypertension TECHNIQUE: Radiopharmaceutical was injected at peak stress test, and also at rest. SPECT images were obtained. SPECT myocardial perfusion images were displayed in short axis, horizontal long axis, and vertical long axis views. Gated images were reviewed using [employer] software. COMPARISON: None. CARDIAC STRESS: A modified Jean Claude treadmill exercise tolerance test was performed by the patient under the supervision of an attending staff. The patient exercised for 4:37; 7.0 METS; functional aerobic impairment (ALFONSO) is 11%. Hemodynamic data: There is normal heart rate response to exercise stress. Borderline hypertensive response to exercise, maximum blood pressure 200/102. Patient achieved 94% of maximum predicted heart rate at peak exercise. Symptoms: Patient denied chest pain during exercise. EKG: The rest EKG showed sinus rhythm, LVH. The exercise ECG demonstrated sinus tachycardia, no ST segment changes, ectopy or arrhythmia. The recovery ECG showed sinus tachycardia to sinus rhythm, 2.[address] segment depressions leads II, III, aVF, V3 to V6 with PACs, runs of PSVT and frequent multifocal PVCs. FINDINGS: Raw data: There is good myocardial labeling by radiotracer. No significant motion artifacts. Gozq-mr-pesui ratio is 0.23 (normal is less than 0.38 for sestamibi tracer, and less than 0.50 for thallium tracer). Left ventricle function: Gated images demonstrate normal left ventricle wall thickening. No segmental wall motion abnormality. No transient ischemic dilation; TID is 0.95 (normal less than 1.3). The left ventricle resting end-diastolic volume is 84 mL. Left ventricle stress ejection fraction is > 75%; normal values are above 45%. Myocardial perfusion: There is normal distribution of activity in the left and right ventricular myocardium. No fixed or reversible perfusion defects. IMPRESSION: No evidence of exercise-induced ischemia or scar on SPECT imaging. Abnormal ECG in recovery (please see description noted above). Borderline hypertensive response. Normal heart rate response. Reduced exercise capacity on a modified Jean Claude protocol. Dictated by: Judith Aguirre D.O. on 12/22/2022 at 17:29 Approved by: Judith Aguirre D.O. on 12/22/2022 at 17:38
== END ==
PROVIDERS: PCP Family Medicine; Referring Provider Physician Assistant; Visit Provider Physician Assistant
DX: R94.31 Abnormal electrocardiogram [ECG] [EKG] (principal); R55 Syncope and collapse; I10 Essential (primary) hypertension
CPT/HCPCS: 78452; 93017; A9502

== ENCOUNTER → 2023-03-29 08:40 | Outpatient (CLI) | payer MEDICARE, OTHER, SELFPAY ==
[2020-03-26 14:52] VITALS: BMI 26.4
[2023-03-29 10:19] LABS: Alanine Aminotransferase 17 IU/L (<35); Albumin 4.2 g/dL (3.5-5.0); Albumin Globulin Ratio 1.6 (1.0-2.8); Alkaline Phosphatase 80 U/L (38-126); Aspartate Aminotransferase 22 IU/L (14-36); BUN Creatinine Ratio 35.4 (6-22); Bilirubin Total 0.6 mg/dL (0.2-1.3); Blood Urea Nitrogen 28 mg/dL (7-17); Calcium 9.8 mg/dL (8.4-10.2); Carbon Dioxide 30 mmol/L (22-32); Chloride 99 mmol/L (98-107); Cholesterol 181 mg/dL (140-199); Estimated Glomerular Filt Rate > 60 mL/min (>60); Globulin 2.7 g/dL (1.7-4.1); Glucose 90 mg/dL (80-110); HDL Cholesterol 38 mg/dL (40-60); HEMOLYSIS < 15 (0-50); LDL Cholesterol Calculated 111 mg/dL (<100); Potassium 4.1 mmol/L (3.4-5.1); Sodium 139 mmol/L (137-145); Total Protein 6.9 g/dL (6.3-8.2); Triglycerides 160 mg/dL (35-150)
[2023-03-29 10:54] LABS: Creatinine Urine Random 188.9 mg/dL
[2023-03-29 10:59] LABS: Microalbumi Creatinin Ratio Ur 5.2 ug/mg CR (<30)
== END ==
PROVIDERS: PCP Family Medicine; Referring Provider Family Medicine; Visit Provider Family Medicine
DX: I10 Essential (primary) hypertension (principal)
CPT/HCPCS: 36415; 80053; 80061; 82043; 82570

== ENCOUNTER → 2023-04-18 | Outpatient (CLI) | payer MEDICARE, OTHER, SELFPAY ==
[2020-03-26 14:52] VITALS: BMI 26.4
--- NOTE | 2023-04-18 08:20 | DI.MG.S_ITS ---
BILATERAL DIGITAL SCREENING MAMMOGRAM 3D/2D WITH CAD: 04/18/2023 CLINICAL: Routine screening. Comparison is made to exams dated: 04/17/2022 mammogram, 04/16/2021 mammogram, and 04/15/2020 mammogram - [facility]. There are scattered areas of fibroglandular density in both breasts (category b / 25%-50% glandular tissue). Current study was also evaluated with a Computer Aided Detection (CAD) system. There is a round high density focal asymmetry in the left breast at 12 o'clock middle depth. No other significant masses, calcifications, or other findings are seen in either breast. IMPRESSION: INCOMPLETE: NEEDS ADDITIONAL IMAGING EVALUATION The round high density focal asymmetry in the left breast is indeterminate. Additional views with possible ultrasound are recommended. Based on the Tyrer Cuzick model (a risk assessment model) the patient's lifetime risk is 1.8% and her 10 year risk is 0.0%. According to the ACR, ACS, and NCCN guidelines, an annual breast MRI exam along with mammogram is recommended if the patient's lifetime risk is 20% or greater. This exam was interpreted at Station ID: [id number]. NOTE: For mammograms, a report in lay terms will be sent to the patient. Approximately 15% of breast malignancies will not be visualized mammographically. In the management of a palpable breast mass, a negative mammogram must not discourage biopsy of a clinically suspicious lesion. Electronically Signed By: Sola reid/angie:04/18/2023 15:25:46 letter sent: Additional Imaging Needed ACR BI-RADS Category 0: Incomplete 3340F
== END ==
LOC: MAMMO 08:19
PROVIDERS: PCP Family Medicine; Referring Provider Family Medicine; Visit Provider Family Medicine
DX: Z12.31 Encounter for screening mammogram for malignant neoplasm of breast (principal)
CPT/HCPCS: 77063; 77067

== ENCOUNTER → 2024-03-06 10:13 | Outpatient (CLI) | payer MEDICARE, OTHER, SELFPAY ==
[2020-03-26 14:52] VITALS: BMI 26.4
--- NOTE | 2024-03-06 10:15 | DI.MG.S_ITS ---
BILATERAL DIGITAL SCREENING MAMMOGRAM 3D/2D WITH CAD: 03/06/2024 CLINICAL: Routine screening. Comparison is made to exams dated: 04/18/2023 mammogram, 04/17/2022 mammogram, and 04/16/2021 mammogram - [facility]. There are scattered areas of fibroglandular density (category b / 25%-50% glandular tissue). Current study was also evaluated with a Computer Aided Detection (CAD) system. No significant masses, calcifications, or other findings are seen in either breast. There has been no significant interval change. IMPRESSION: NEGATIVE There is no mammographic evidence of malignancy. A 1 year screening mammogram is recommended. Based on the Tyrer Cuzick model (a risk assessment model) the patient's lifetime risk is 1.6% and her 10 year risk is 0.0%. According to the ACR, ACS, and NCCN guidelines, an annual breast MRI exam along with mammogram is recommended if the patient's lifetime risk is 20% or greater. This exam was interpreted at Station ID: [id number]. NOTE: For mammograms, a report in lay terms will be sent to the patient. Approximately 15% of breast malignancies will not be visualized mammographically. In the management of a palpable breast mass, a negative mammogram must not discourage biopsy of a clinically suspicious lesion. Electronically Signed By: Daron cutler/angie:03/11/2024 11:09:04 letter sent: Normal Exam ACR BI-RADS Category 1: Negative
== END ==
LOC: MAMMO 10:14
PROVIDERS: PCP Family Medicine; Referring Provider Family Medicine; Visit Provider Family Medicine
DX: Z12.31 Encounter for screening mammogram for malignant neoplasm of breast (principal)
CPT/HCPCS: 77063; 77067

== ENCOUNTER → 2024-03-13 07:43 | Outpatient (CLI) | payer MEDICARE, OTHER, SELFPAY ==
[2020-03-26 14:52] VITALS: BMI 26.4
[2024-03-13 09:27] LABS: Alanine Aminotransferase 20 IU/L (<35); Albumin 4.2 g/dL (3.5-5.0); Albumin Globulin Ratio 1.5 (1.0-2.8); Alkaline Phosphatase 61 U/L (38-126); Aspartate Aminotransferase 23 IU/L (14-36); Bilirubin Total 0.7 mg/dL (0.2-1.3); Blood Urea Nitrogen 23 mg/dL (7-17); Calcium 9.8 mg/dL (8.4-10.2); Carbon Dioxide 26 mmol/L (22-32); Chloride 104 mmol/L (98-107); Cholesterol 188 mg/dL (140-199); Estimated Glomerular Filt Rate > 60 mL/min (>60); Globulin 2.8 g/dL (1.7-4.1); Glucose 105 mg/dL (80-110); HDL Cholesterol 50 mg/dL (40-60); HEMOLYSIS < 15 (0-50); LDL Cholesterol Calculated 102 mg/dL (<100); Potassium 4.3 mmol/L (3.4-5.1); Sodium 138 mmol/L (137-145); Triglycerides 182 mg/dL (35-150)
== END ==
PROVIDERS: PCP Family Medicine; Referring Provider Family Medicine; Visit Provider Family Medicine
DX: I10 Essential (primary) hypertension (principal); E78.00 Pure hypercholesterolemia, unspecified
CPT/HCPCS: 36415; 80053; 80061

== ENCOUNTER → 2024-09-26 14:20 | Outpatient (CLI) | payer MEDICARE, OTHER, SELFPAY ==
[2020-03-26 14:52] VITALS: BMI 26.4
--- NOTE | 2024-09-26 14:23 | DI.RAD.S_ITS ---
PROCEDURE: XR CHEST 2V INDICATIONS: SoB TECHNIQUE: 2 views of the chest were acquired. COMPARISON: [facility], CR, XR CHEST 2V, 11/07/2018, 14:53. FINDINGS: Surgical changes and devices: None. Lungs and pleura: Lungs are clear. No pleural effusions or pneumothorax. Mediastinum: Mediastinal contours are normal. Heart size is normal. Bones and chest wall: No suspicious bony abnormalities. Soft tissues appear unremarkable. IMPRESSION: No acute cardiopulmonary abnormality is seen. Dictated by: Kem Luz M.D. on 09/27/2024 at 6:23 Approved by: Kem Luz M.D. on 09/27/2024 at 6:24
== END ==
PROVIDERS: PCP Family Medicine; Referring Provider Internal Medicine Cardiovascular Disease; Visit Provider Internal Medicine Cardiovascular Disease
DX: I48.0 Paroxysmal atrial fibrillation (principal); R06.02 Shortness of breath
CPT/HCPCS: 71046

== ENCOUNTER → 2024-10-13 11:50 | Outpatient (CLI) | payer MEDICARE, OTHER, SELFPAY ==
[2020-03-26 14:52] VITALS: BMI 26.4
[2024-10-13 12:46] LABS: Add Manual Diff / Slide Review NO; Basophils Absolute Auto 0 /uL (0-100); Basophils Percent Auto 0.8 % (0-2); Eosinophils Absolute Auto 100 /uL (0-450); Eosinophils Percent Auto 1.1 % (2-4); Hematocrit 23.6 % (36-46); Hemoglobin 7.2 g/dL (12.0-16.0); Lymphocytes Absolute Auto 1300 /uL (1100-4500); Lymphocytes Percent Auto 19.9 % (25-40); Mean Corpuscular HGB Conc 30.6 % (30-36); Mean Corpuscular Hemoglobin 19.2 PG (26-34); Mean Corpuscular Volume 62.5 fL (80-100); Monocytes Absolute Auto 600 /uL (0-900); Monocytes Percent Auto 8.8 % (3-14); Neutrophils Absolute Auto 4500 /uL (1500-7000); Neutrophils Percent Auto 69.4 % (50-75); Platelet Count 476 X10^3/uL (150-400); Red Blood Cell Count 3.78 X10^6/uL (4.0-5.2); Red Cell Distribution Width 18.5 % (11.6-14.8); White Blood Cell Count 6.5 X10^3/uL (4.5-11.0)
[2024-10-13 12:51] LABS: Iron 21 ug/dL (37-170)
[2024-10-13 12:52] LABS: Alanine Aminotransferase 19 IU/L (<35); Albumin 4.6 g/dL (3.5-5.0); Albumin Globulin Ratio 1.8 (1.0-2.8); Alkaline Phosphatase 68 U/L (38-126); Aspartate Aminotransferase 24 IU/L (14-36); BUN Creatinine Ratio 26.7 (6-22); Bilirubin Total 0.8 mg/dL (0.2-1.3); Blood Urea Nitrogen 24 mg/dL (7-17); Calcium 9.7 mg/dL (8.4-10.2); Carbon Dioxide 23 mmol/L (22-32); Chloride 102 mmol/L (98-107); Estimated Glomerular Filt Rate > 60 mL/min (>60); Globulin 2.5 g/dL (1.7-4.1); Glucose 94 mg/dL (70-99); HEMOLYSIS < 15 (0-50); Potassium 4.2 mmol/L (3.4-5.1); Sodium 137 mmol/L (137-145); Total Protein 7.1 g/dL (6.3-8.2)
[2024-10-13 13:18] LABS: Anisocytosis 2+; Hypochromasia 3+; Microcytosis 2+; Ovalocytes 1+
[2024-10-13 13:26] LABS: Ferritin 4 ng/mL (11-264)
== END ==
PROVIDERS: PCP Family Medicine; Referring Provider Family Medicine; Visit Provider Family Medicine
DX: D64.9 Anemia, unspecified (principal)
CPT/HCPCS: 36415; 80053; 82728; 83540; 85025

== ENCOUNTER → 2024-10-15 08:55 | Outpatient (CLI) | payer MEDICARE, OTHER, SELFPAY ==
[2020-03-26 14:52] VITALS: BMI 26.4
[2024-10-15 11:26] LABS: Add Manual Diff / Slide Review NO; Basophils Absolute Auto 100 /uL (0-100); Basophils Percent Auto 0.8 % (0-2); Eosinophils Absolute Auto 100 /uL (0-450); Eosinophils Percent Auto 1.7 % (2-4); Hematocrit 31.3 % (36-46); Hemoglobin 9.8 g/dL (12.0-16.0); Lymphocytes Absolute Auto 1500 /uL (1100-4500); Lymphocytes Percent Auto 20.1 % (25-40); Mean Corpuscular HGB Conc 31.3 % (30-36); Mean Corpuscular Hemoglobin 21.5 PG (26-34); Mean Corpuscular Volume 68.6 fL (80-100); Monocytes Absolute Auto 600 /uL (0-900); Monocytes Percent Auto 7.7 % (3-14); Neutrophils Absolute Auto 5200 /uL (1500-7000); Neutrophils Percent Auto 69.7 % (50-75); Platelet Count 455 X10^3/uL (150-400); Red Blood Cell Count 4.56 X10^6/uL (4.0-5.2); Red Cell Distribution Width 23.6 % (11.6-14.8); White Blood Cell Count 7.5 X10^3/uL (4.5-11.0)
[2024-10-15 11:50] LABS: Anisocytosis 2+; Hypochromasia 2+
[2024-10-15 11:51] LABS: Ovalocytes 1+; Poikilocytosis 1+
== END ==
PROVIDERS: PCP Family Medicine; Referring Provider Family Medicine; Visit Provider Family Medicine
DX: D64.9 Anemia, unspecified (principal); R53.83 Other fatigue
CPT/HCPCS: 36415; 85025

== ENCOUNTER → 2024-10-21 13:01 | Outpatient (CLI) | payer MEDICARE, OTHER, SELFPAY ==
[2020-03-26 14:52] VITALS: BMI 26.4
[2024-10-21 13:46] LABS: Hematocrit 31.4 % (36-46); Hemoglobin 9.9 g/dL (12.0-16.0)
== END ==
PROVIDERS: PCP Family Medicine; Referring Provider Family Medicine; Visit Provider Family Medicine
DX: D64.9 Anemia, unspecified (principal)
CPT/HCPCS: 36415; 85014; 85018

== ENCOUNTER 2024-11-13 10:19 | Day surgery (SDC) | payer MEDICARE, OTHER, SELFPAY ==
[2020-03-26 14:52] VITALS: BMI 26.4
[2024-10-30 14:24] VITALS: BMI 27.4
--- NOTE | 2024-11-13 | PATH_ITS ---
[facility] Accession Number: [id number] No. of containers..02 Tissue . 01 Material submitted: . PART A: gastrointestinal site - ANTRUM BIOPSY PART B: gastrointestinal site - GASTRIC MUCOSA BIOPSY . 01 Diagnosis: A. STOMACH, ANTRUM, BIOPSY: Antral mucosa with mild reactive gastropathy. Negative for Helicobacter organisms and intestinal metaplasia. Negative for dysplasia and malignancy. . B. STOMACH, UNSPECIFIED BIOPSY: Gastric mucosa with mild foveolar hyperplasia, otherwise unremarkable. Negative for Helicobacter organisms and intestinal metaplasia. Negative for dysplasia and malignancy. [facility] 11/19/2024 1515 Local . 01 Comment: Immunohistochemistry for Helicobacter organisms is performed on block A1 and is negative. . - Technical Note: The immunohistochemical stains reported were performed with appropriately staining controls at [facility] ([address], [facility] [address]). This test was developed and performance characteristics validated by [facility]. It has not been cleared or approved by the Food and Drug Administration. . 01 Electronically signed: . Estefani Valdivia DO, Pathologist NPI- [id number] . 01 Gross description: . A. Received in formalin with two identifiers and antrum biopsy, are three ho soft tissue fragments 0.3 to 0.6 cm in greatest dimension. Submitted in cassette A1. B. Received in formalin with two identifiers and gastric mucosa biopsy, are four ho soft tissue fragments 0.1 to 0.3 cm in greatest dimension. Submitted in cassette B1. ([id number]) /NARCISO 11/16/2024 0624 Local . 01 Pathologist provided ICD-10: D64.9 . 01 CPT . 457329, 212522, S55529 Specimen Comment: A courtesy copy of this report has been sent to [phone] Performed at: 01 [facility] [address], [place], [place] [id number] MD Fredy Dubois MD Phone: [phone]
[2024-11-13 11:03] VITALS: BP 162/71; PULSE 67; RESP 20; TEMP 36.2; O2SAT 98
[2024-11-13] MEDS: LACTATED RINGERS 1,000 ML 42 ML IV (11:15)
--- NOTE | 2024-11-13 11:37 | PM.HP.IH.1 ---
History of Present Illness History of Present Illness Date Patient Seen: 11/13/24 Time Patient Seen: 11:37 Chief complaint: EGD/Colonoscopy Narrative: Alecia is an 79-year-old woman who presents with anemia. She did have a normal colonoscopy as recently as 2023. She has not noticed any melena or hematochezia. She was on Eliquis. COUNTS INCLUDE 234 BEDS AT THE [facility] Medical History (Updated 11/13/24 @ 11:39 by Sherwin Blevins MD) Anemia Diverticulitis Paroxysmal A-fib Exertional shortness of breath Atrial fibrillation Hypercalcemia Osteoarthritis of right knee Diverticulitis of intestine with abscess Hyperlipidemia Hypertension (2005) Ovarian cyst (1997) Cataract (2006) Chicken pox (1949) Mumps (1949) Rubella (1949) Retinal vascular abnormality Surgical History (Updated 10/30/24 @ 14:16 by Yuko Okeefe RN) History of colon resection (10/19/21) Total knee replacement status (~06/2020) Anesthesia History of total abdominal hysterectomy (05/1998) Status post unilateral salpingo-oophorectomy (03/1977) History of cataract removal with insertion of prosthetic lens History of tonsillectomy Status post arthroscopy (2006) Status post appendectomy Status post arthroscopy (2005) Family History Brother Age: 72 Osteoarthritis Arrhythmia Heart disease Secondary hypertension, unspecified IBS (irritable bowel syndrome) Arthritis Grandfather TB (tuberculosis) Grandmother Heart disease Mother Colon cancer Hyperlipidemia Hypertension CAD (coronary artery disease) Heart valve replaced Grandfather Stroke Grandmother Heart disease Sister Age: 78 IBS (irritable bowel syndrome) Father Rheumatoid arthritis Sister No problems noted. Sister No problems noted. Sister No problems noted. Social History household members: none Smoking Status: Never smoker second hand exposure: No alcohol intake: current substance use type: does not use Meds Home Medications and Allergies Home Medications Medication Instructions Recorded Confirmed Type coQ10 (ubiquinol) 100 mg capsule 100 mg PO DAILY ##0 04/09/17 10/13/24 History cholecalciferol (vitamin D3) 125 125 mcg PO DAILY 03/16/21 10/13/24 History mcg (5,000 unit) capsule apixaban 5 mg tablet (Eliquis) 5 mg PO BID 10/11/23 10/13/24 History magnesium chloride 64 mg 128 mg PO DAILY 10/11/23 10/13/24 History tablet,extended release tvkfoljzjoksoxd-ywewwtzmfmh-tidhowrbvfupu tab PO 10/11/23 10/13/24 History 30 mg-200 mg-325 mg tablet hydrochlorothiazide 25 mg tablet 25 mg PO DAILY #90 tabs 05/07/24 10/13/24 Rx rosuvastatin 20 mg tablet 20 mg PO DAILY #90 tabs 06/05/24 10/13/24 Rx metoprolol tartrate 50 mg tablet 50 mg PO BID 10/13/24 11/13/24 History amlodipine 2.5 mg tablet 2.5 mg PO DAILY 10/30/24 11/13/24 History sodium,potassium,mag sulfates 17.5 See Rx Instructions PO .COMPLEX 10/30/24 Rx gram-3.13 gram-1.6 gram oral soln #354 mL (Suprep Bowel Prep Kit) Allergies Allergy/AdvReac Type Severity Reaction Status Date / Time morphine [MORPHINE] AdvReac Mild MADE ME Verified 10/13/24 11:18 LOONEY sertraline [From Zoloft] AdvReac HTN, high Verified 10/30/24 14:22 HR, nausea, lightheadedness. Exam Vital Signs (past 8 hours): - 11/13/24 11:03 Temperature 97.1 F L Pulse Rate 67 Respiratory Rate 20 Blood Pressure 162/71 H Pulse Oximetry 98 Oxygen Delivery Method Room Air Oxygen Delivery Method Room Air Const General: No acute distress Resp Effort & Inspection: normal respiratory effort Assessment & Plan Assessment and plan (1) Anemia: Qualifiers: Anemia type: iron deficiency Iron deficiency anemia type: other iron deficiency Qualified Code(s): D50.8 - Other iron deficiency anemias Status: Acute Plan EGD and colonoscopy Time-Based Coding :: [TOTAL MINUTES] spent with patient and on the chart (including review of chart, obtaining history, exam, reviewing outside data, placing orders, documenting exam and treatment plan, and counseling patient) on [DATE]. PROFEE Life Cycle Assessment Analyst Document charge(s): No
--- NOTE | 2024-11-13 11:59 | SUR.OPER ---
Scope #048 for EGD
--- NOTE | 2024-11-13 12:18 | PM.OP.EC ---
Operative Date/Time/Diagnoses Date of procedure: 11/13/24 Time of procedure: 12:18 Pre-op diagnosis: Anemia Post-op diagnosis: same Procedure & Clinicians Study performed: EGD and colonoscopy Same procedure as scheduled: Yes Surgeon: Sherwin Blevins Procedure Notes Procedure in detail: Surgeon: Sherwin Blevins MD Anesthesia: Rosi Soto CRNA Procedure in detail: A timeout was performed. A bite blocked was placed and monitors were attached to the patient. The patient was positioned in the left lateral decubitus position. Sedation was administered. Once the patient was sedated the endoscope was inserted through the bite block and passed through the esophagus and stomach and into the duodenum. There were no abnormalities in the duodenum. We then withdrew the scope into the stomach. There was mild antritis and random biopsies were taken from the antrum with cold forceps. There were to nonbleeding ulcers in the distal stomach. Biopsies were taken from the mucosa around the ulcers and sent as ?gastric mucosa?. There were no visible vessels in the bases of the ulcers. The endoscope was retroflexed and a small hiatal hernia was noted. The endoscope was straightned and withdrawn into the esophagus. No abnormalities were found in the esophagus. EGD findings: Antritis and two distal gastric ulcers Next we repositioned the patient for a colonoscopy. A digital rectal exam was performed and was normal. The colonoscope was inserted and advanced to the cecum. The appendiceal orifice was identified and photographed. The scope was slowly withdrawn over greater than 6 minutes. No polyps or masses were found. The scope was retroflexed in the rectum and no other abnormalities were found. Colonoscopy findings: Normal colon Total procedural EBL: 5 mL Scope withdrawal time: 7 minutes Sedation minutes: 21 minutes Post-procedure Disposition: PACU
[2024-11-13 12:20] VITALS: BP 120/55; PULSE 54; RESP 20; TEMP 36.3; O2SAT 98
[2024-11-13 12:25] VITALS: BP 117/62; PULSE 58; RESP 14; TEMP 36.3; O2SAT 99
[2024-11-13 12:31] VITALS: BP 124/58; PULSE 54; RESP 18; O2SAT 100
== END 2024-11-13 12:54 | disposition home or self-care (01) ==
PROVIDERS: PCP Family Medicine; Referring Provider Surgery; Visit Provider Surgery
PROC: 0DJ08ZZ Inspection of Upper Intestinal Tract, Via Natural or Artificial Opening Endoscopic (ICD-10-PCS; principal; 2024-11-13 11:30)
PROC: 0DJD8ZZ Inspection of Lower Intestinal Tract, Via Natural or Artificial Opening Endoscopic (ICD-10-PCS; CPT 45378; 2024-11-13 11:30)
DX: K29.50 Unspecified chronic gastritis without bleeding (principal); K44.9 Diaphragmatic hernia without obstruction or gangrene; K25.9 Gastric ulcer, unspecified as acute or chronic, without hemorrhage or perforation; K31.9 Disease of stomach and duodenum, unspecified
CPT/HCPCS: 43239; 45378; J2704

== ENCOUNTER → 2024-11-20 09:50 | Outpatient (CLI) | payer MEDICARE, OTHER, SELFPAY ==
[2020-03-26 14:52] VITALS: BMI 26.4
[2024-11-20 10:33] LABS: Hematocrit 30.6 % (36-46); Hemoglobin 9.7 g/dL (12.0-16.0)
== END ==
PROVIDERS: PCP Family Medicine; Referring Provider Family Medicine; Visit Provider Family Medicine
DX: D64.9 Anemia, unspecified (principal)
CPT/HCPCS: 36415; 85014; 85018

== ENCOUNTER → 2024-12-30 09:54 | Outpatient (CLI) | payer MEDICARE, OTHER, SELFPAY ==
[2024-11-26 16:11] VITALS: BMI 26.4
[2024-12-30 10:41] LABS: Add Manual Diff / Slide Review NO; Hematocrit 26.7 % (36-46); Hemoglobin 8.6 g/dL (12.0-16.0); Lymphocytes Absolute Auto 1100 /uL (1100-4500); Mean Corpuscular HGB Conc 32.0 % (30-36); Mean Corpuscular Hemoglobin 21.9 PG (26-34); Mean Corpuscular Volume 68.4 fL (80-100); Platelet Count 413 X10^3/uL (150-400)
[2024-12-30 11:29] LABS: Anisocytosis 2+; Hypochromasia 1+; Microcytosis 2+
[2024-12-30 11:59] LABS: Microalbumi Creatinin Ratio Ur 14.0 ug/mg CR (<30)
== END ==
PROVIDERS: PCP Family Medicine; Referring Provider Family Medicine; Visit Provider Family Medicine
DX: D50.8 Other iron deficiency anemias (principal); I10 Essential (primary) hypertension; E78.00 Pure hypercholesterolemia, unspecified
CPT/HCPCS: 36415; 82043; 82570; 85025

== ENCOUNTER → 2025-03-09 08:26 | Outpatient (CLI) | payer MEDICARE, OTHER, SELFPAY ==
[2024-11-26 16:11] VITALS: BMI 26.4
--- NOTE | 2025-03-09 08:27 | DI.MG.S_ITS ---
MM screening mammo BI: 03/09/2025. BI-RADS: 1 CLINICAL: 79-year old female for bilateral screening mammogram. Tyrer-Cuzick lifetime risk of 1.1%. No personal or first-degree family history of breast cancer. PRIOR EXAMS 03/06/2024, 04/18/2023, 04/17/2022, 04/16/2021. MAMMOGRAPHY TECHNIQUE: 2D and 3D (tomosynthesis) digital mammographic views obtained, with additional images as needed for full coverage. Current study was also evaluated with a Computer Aided Detection (CAD) system. DENSITY B. There are scattered areas of fibroglandular density. MAMMOGRAPHY FINDINGS Bilateral: No suspicious mass, asymmetry, microcalcification, or other abnormality seen. IMPRESSION: * No evidence of malignancy. RECOMMENDATIONS Bilateral * Annual screening mammography. OVERALL ASSESSMENT CATEGORY BI-RADS-1: Negative. The [employer] recommends annual screening mammography beginning at age 40 for women with average risk of breast cancer. ELECTRONICALLY SIGNED: Marcia Benton M.D. on 03/09/2025 at 06:00:52 PM PT Interpreting Station ID: [id number]
== END ==
LOC: MAMMO 08:26
PROVIDERS: PCP Family Medicine; Referring Provider Family Medicine; Visit Provider Family Medicine
DX: Z12.31 Encounter for screening mammogram for malignant neoplasm of breast (principal)
CPT/HCPCS: 77063; 77067

== ENCOUNTER → 2025-03-26 07:55 | Outpatient (CLI) | payer MEDICARE, OTHER, SELFPAY ==
[2024-11-26 16:11] VITALS: BMI 26.4
[2025-03-26 08:45] LABS: Add Manual Diff / Slide Review NO; Hematocrit 31.4 % (36-46); Hemoglobin 10.0 g/dL (12.0-16.0); Lymphocytes Absolute Auto 1200 /uL (1100-4500); Mean Corpuscular HGB Conc 31.9 % (30-36); Mean Corpuscular Hemoglobin 23.0 PG (26-34); Mean Corpuscular Volume 72.2 fL (80-100); Platelet Count 437 X10^3/uL (150-400)
[2025-03-26 09:25] LABS: HEMOLYSIS < 15 (0-50); Iron 31 ug/dL (37-170)
[2025-03-26 09:37] LABS: Percent Iron Saturation 7 % (15-50); Total Iron Binding Capacity 439 ug/dL (265-497); Transferrin 358 mg/dL (206-381)
[2025-03-26 09:41] LABS: Cholesterol 171 mg/dL (140-199); HDL Cholesterol 46 mg/dL (40-60); Triglycerides 116 mg/dL (35-150)
[2025-03-26 10:04] LABS: Ferritin 7 ng/mL (11-264)
== END ==
PROVIDERS: PCP Family Medicine; Referring Provider Family Medicine; Visit Provider Family Medicine
DX: D50.8 Other iron deficiency anemias (principal); E78.00 Pure hypercholesterolemia, unspecified
CPT/HCPCS: 36415; 80061; 82728; 83540; 83550; 85025

== ENCOUNTER → 2025-04-02 10:12 | Outpatient (CLI) | payer MEDICARE, OTHER, SELFPAY ==
[2024-11-26 16:11] VITALS: BMI 26.4
--- NOTE | 2025-04-02 10:13 | DI.RAD.S_ITS ---
PROCEDURE: XR KNEE LT 3V INDICATIONS: pain TECHNIQUE: 3 views of the knee were acquired. COMPARISON: None. FINDINGS: Bones: No fractures or dislocations. No suspicious bony lesions. Tricompartment joint osteophytes are noted. Marked patellofemoral and moderate medial and lateral compartment joint space narrowing. Chondrocalcinosis is present. Soft tissues: Small joint effusion. IMPRESSION: No acute fracture or malalignment. Tricompartment knee arthritis. Joint effusion. Dictated by: Johanny Angulo M.D. on 04/02/2025 at 14:01 Approved by: Johanny Angulo M.D. on 04/02/2025 at 14:04
--- NOTE | 2025-04-02 10:13 | DI.RAD.S_ITS ---
PROCEDURE: XR HIP W PEL IF DONE LT 2V INDICATIONS: pain TECHNIQUE: AP pelvis with lateral view(s) of the left hip(s). COMPARISON: None. FINDINGS: Bones: No fractures or dislocations. Pelvic ring appears intact. No suspicious bony lesions. Mild bilateral hip joint space narrowing and osteophytes. Bilateral SI joint sclerosis noted. Lower lumbar spine degenerative disease. Soft tissues: The visualized bowel gas pattern is normal. No suspicious soft tissue calcifications. IMPRESSION: No acute bony abnormality. Dictated by: Johanny Angulo M.D. on 04/02/2025 at 13:59 Approved by: Johanny Angulo M.D. on 04/02/2025 at 14:00
== END ==
PROVIDERS: PCP Family Medicine; Referring Provider Family Medicine; Visit Provider Family Medicine
DX: R52 Pain, unspecified (principal); M17.12 Unilateral primary osteoarthritis, left knee; M11.262 Other chondrocalcinosis, left knee; M25.462 Effusion, left knee; M51.369 Other intervertebral disc degeneration, lumbar region without mention of lumbar back pain or lower extremity pain; M25.752 Osteophyte, left hip
CPT/HCPCS: 73502; 73562